=== PATIENT | male | born 1935 | race Caucasian/White ===

== ENCOUNTER 2019-12-30 19:03 | Inpatient (IN) | payer OTHER ==
--- OUTSIDE RECORDS SUMMARY | 2019-12-30 19:04 | XMS REPORT | Continuity of Care Document ---
:1935 Author Organization [facility] t Address [address] [place] [address] Dr. Owusu. [address] [place] [id number] Care Team Providers Name Role Phone Unavailable Unavailable Unavailable Problems This patient has no known problems. Allergies, Adverse Reactions, Alerts This patient has no known allergies or adverse reactions. Medications This patient has no known medications. Procedures This patient has no known procedures. Results This patient has no known results.
--- NOTE | 2019-12-30 19:51 | RAD REPORT ---
EXAM DESCRIPTION: Hugo Single View12/30/2019 7:43 pm CLINICAL HISTORY: cough COMPARISON: 2014 FINDINGS: The lungs appear clear of acute infiltrate. The heart is normal size IMPRESSION: No acute abnormalities displayed
[2019-12-30 20:43] LABS: Absolute Lymphocytes (CBC) 0.8 K/uL (0.7-4.9); Basophils % 0.8 % (0-1.3); Lymphocytes % 9.1 % (15.3-44.8); MPV 7.6 fL (7.6-11.3); RBC Red Blood Cell Count 4.82 M/uL (4.33-5.43)
[2019-12-30 20:52] LABS: Protime INR 1.03
[2019-12-30 20:59] LABS: ALT/SGPT 11 U/L (12-78); AST/SGOT 24 U/L (15-37); Albumin 3.4 g/dL (3.4-5.0); Alkaline Phosphatase 83 U/L (45-117); BUN Blood Urea Nitrogen 22 mg/dL (7-18); Bicarbonate 25 mmol/L (21-32); Bilirubin Direct 0.1 mg/dL (0-0.2); Bilirubin Total 0.5 mg/dL (0.2-1.0); C-Reactive Protein 9.04 mg/L (<3.00); Ferritin 38.5 ng/mL (26-388); Glucose Level 151 mg/dL (74-106); Lipase 215 U/L (73-393); Protein, Total 6.8 g/dL (6.4-8.2); Sodium Level 140 mmol/L (136-145); Troponin (Emerg Dept Use Only) < 0.02 ng/mL (0.0-0.045)
--- NOTE | 2019-12-30 21:12 | ER ---
Nurse's Notes [facility] Name: Darren Avendano Age: 84 yrs Sex: Male : 1935 Arrival Date: 12/30/2019 Time: 19:06 Bed 18 Private MD: Diagnosis: Coronavirus infection, unspecified;Hypoxemia;Unspecified combined systolic (congestive) and diastolic (congestive) heart failure;Fever, unspecified Presentation: 12/29 19:22 Chief complaint: EMS states: Cough, generalized weakness. Coronavirus screen: Patient ks7 reports a cough. Patient reports shortness of breath or difficulty breathing. Patient reports a measured and/or subjective temperature greater than 100.4F. Patient denies travel on a cruise ship or to a country the [facility] currently lists as an affected area. Patient denies contact with known and/or suspected case of COVID-19. Patient instructed to continue to wear a mask when interacting with others. Patient moved to private room, placed in contact and droplet isolation with eye protection until further assessment. Ebola Screen: Patient negative for fever greater than or equal to 101.5 degrees Fahrenheit, and additional compatible Ebola Virus Disease symptoms Patient denies exposure to infectious person. Patient denies travel to an Ebola-affected area in the 21 days before illness onset. Initial Sepsis Screen: Does the patient meet any 2 criteria? No. Patient's initial sepsis screen is negative. Does the patient have a suspected source of infection? No. Patient's initial sepsis screen is negative. Risk Assessment: Do you want to hurt yourself or someone else? Patient reports no desire to harm self or others. Onset of symptoms was December 30, 2019. 19:22 Method Of Arrival: EMS: [facility] 19:22 Acuity: FREDDIE 3 ks7 Triage Assessment: 19:28 General: Appears denies pain states "I'm fine". pt comes in with cough, fever, ks7 generalized weakness. Behavior is calm, cooperative. Pain: Denies pain. Historical: - Allergies: 19:28 No Known Allergies; ks7 - PMHx: 19:28 Hypertension; Depression; Diabetes - NIDDM; CHF; PVD; ks7 - Immunization history:: Adult Immunizations up to date. - Social history:: Smoking status: unknown. Screenin:31 Abuse screen: Denies threats or abuse. Denies injuries from another. Nutritional ks7 screening: No deficits noted. Tuberculosis screening: No symptoms or risk factors identified. Fall Risk No fall in past 12 months (0 pts). Secondary diagnosis (15 points) IV access (20 points). Ambulatory Aid- None/Bed Rest/Nurse Assist (0 pts). Gait- Weak (10 pts.). Mental Status- Overestimates/Forgets Limitations (15 pts.). Total Hook Fall Scale indicates High Risk Score (45 or more points). Fall prevention measures have been instituted. Side Rails Up X 2 Placed Close to Nursing Station Frequent Obs/Assessments Occuring. Assessment: 19:31 General: Appears cough, fever, pt calm cooperative no complaints. ks7 21:00 Reassessment: pt asleep, appears comfortable, VSS. ks7 22:00 Reassessment: No changes from previously documented assessment. ks7 22:55 Reassessment: sommer catheter placed. eunice care done. gown and linen change done. ks7 22:55 Reassessment: pt confused, keeps pulling off bp cuff, 02 cannula, restless. need to [facility] constantly remind and redirect pt to stop pulling lines. 23:11 Reassessment: Spoke with Mariam Cabezas from [facility], updated on patient lp1 admission. 23:30 Reassessment: spoke with Ember Brand, pt daughter. updated on plan of care to admit radha to hospital. [phone]. 23:50 Reassessment: pt appears comfortable, appears asleep, VSS. nj7 12/30 00:07 Reassessment: pt asleep, appears comfortable, vss. [facility] Vital Signs: 12/29 19:22 BP 160 / 83; Pulse 92; Resp 22; Temp 101.4(TE); Pulse Ox 90% on R/A; Weight 95.25 kg; ks7 Height 6 ft. (182.88 cm); Pain 0/10; 19:30 BP 146 / 76; Pulse 88; Resp 18; Temp 99.7(TE); Pulse Ox 97% on 2 lpm NC; Pain 0/10; ks7 20:00 BP 126 / 75; Pulse 96; Resp 22; Temp 101(TE); Pulse Ox 98% on 3 lpm NC; Pain 0/10; ks7 20:30 BP 133 / 72; Pulse 99; Resp 20; Pulse Ox 91% on R/A; Pain 0/10; ks7 21:00 BP 129 / 75; Pulse 95; Resp 18; Pulse Ox 93% on R/A; Pain 0/10; ks7 21:30 BP 116 / 65; Pulse 95; Resp 20; Pulse Ox 93% on R/A; Pain 0/10; ks7 22:00 BP 131 / 68; Pulse 94; Resp 18; Pulse Ox 96% on 3 lpm NC; Pain 0/10; ks7 22:15 BP 123 / 68; Pulse 96; Resp 18; Pulse Ox 89% on R/A; Pain 0/10; ks7 22:50 BP 133 / 79; Pulse 100; Resp 18; Pulse Ox 89% on R/A; Pain 0/10; ks7 22:56 BP 133 / 79; Pulse 95; Resp 20; Temp 100.3(TE); Pulse Ox 94% on 3 lpm NC; Pain 0/10; ks7 23:00 BP 97 / 67; Pulse 95; Resp 20; Pulse Ox 95% on 3 lpm NC; Pain 0/10; ks7 23:30 BP 138 / 79; Pulse 98; Resp 20; Pulse Ox 95% on 3 lpm NC; Pain 0/10; ks7 23:30 BP 129 / 64; Pulse 80; Resp 18; Temp 100.3(TE); Pulse Ox 96% on 3 lpm NC; Pain 0/10; 12/30 00:06 BP 135 / 66; Pulse 74; Resp 18; Temp 99.7(TE); Pulse Ox 97% on 3 lpm NC; Pain 0/10; nj12/29 19:22 Body Mass Index 28.48 (95.25 kg, 182.88 cm) ks12/29 22:15 pt confused pulled oxygen cannula off ks7 22:50 pt pulled nasal cannula off again and bp cuff 7 ED Course: 19:06 Patient arrived in ED. aa5 19:09 Aisha Cuenca, RN is Primary Nurse. ks7 19:19 Mike Casiano MD is Attending Physician. tw4 19:25 Triage completed. ks7 19:28 Arm band placed on right wrist. ks7 19:31 Patient has correct armband on for positive identification. Bed in low position. Call ks7 light in reach. Side rails up X2. 19:40 CXR XRAY Sent. ks7 19:43 CXR XRAY In Process Unspecified. EDMS 20:38 Initial lab(s) drawn, by me, sent to lab. Inserted saline lock: 20 gauge in right ca1 forearm, using aseptic technique. Blood collected. 20:38 First set of blood cultures drawn by me. ca1 20:48 Second set of blood cultures drawn by me. Inserted saline lock: 22 gauge in right ca1 antecubital area, using aseptic technique. Blood collected. 20:52 Flu and/or RSV swab sent to lab. Strep swab sent to lab. Covid swab. ca1 21:10 Jeremie Underwood is Hospitalizing Provider. tw4 23:00 Appears restless. ks7 23:00 No provider procedures requiring assistance completed. Flushed right antecubital ks7 forearm. 23:30 Resting quietly. Appears to be sleeping. ks7 12/30 00:08 Blood Culture Adult (2) Sent. ks7 00:30 Report received from JAYLIN Leonard. lp1 00:30 Patient admitted, IV remains in place. lp1 Administered Medications: Discontinued: AZITHromycin 500 mg IVPB once over 1 hrs; (mix in 250 mL NS) Discontinued: Rocephin - (cefTRIAXone) 1 grams IVPB once over 30 mins; (mix in 50 mL NS) 12/29 21:30 Drug: Rocephin - (cefTRIAXone) 1 grams Route: IVPB; Infused Over: 30 mins; Site: right ks7 antecubital; 21:40 Drug: AZITHromycin 500 mg Route: IVPB; Infused Over: 1 hrs; Site: right forearm; ks7 Outcome: 21:11 Decision to Hospitalize by Provider. tw4 12/30 01:00 Admitted to ER Hold. Please see [facility] for further documentation. lp1 Condition: stable Instructed on the need for admit. 13:20 Patient left the ED. jl7 Signatures: Dispatcher [employer] EDMS Kim Frances, RN RN aa5 Мария Crawford RN RN lp1 Madalyn Yan RN RN jl7 Mike Casiano MD MD tw4 Nela Valdez RN RN ca1 Aisha Cuenca RN RN ks7
--- NOTE | 2019-12-30 21:12 | EDPHYS ---
Physician Documentation [facility] Name: Darren Avendano Age: 84 yrs Sex: Male : 1935 Arrival Date: 12/30/2019 Time: 19:06 Bed 18 Private MD: ED Physician Mike Casiano HPI: 12/29 19:43 This 84 yrs old Male presents to ER via EMS with complaints of cough tw4 congestion generalized weakness. 19:43 The patient or guardian reports airway noise, cough. Onset: The symptoms/episode tw4 began/occurred today. Severity of symptoms: At their worst the symptoms were very mild, in the emergency department the symptoms are unchanged. Modifying factors: The symptoms are alleviated by nothing, the symptoms are aggravated by nothing. The patient has not experienced similar symptoms in the past. Historical: - Allergies: 19:28 No Known Allergies; ks7 - PMHx: 19:28 Hypertension; Depression; Diabetes - NIDDM; CHF; PVD; ks7 - Immunization history:: Adult Immunizations up to date. - Social history:: Smoking status: unknown. ROS: 19:43 Constitutional: Negative for fever, chills, and weight loss, Eyes: Negative for injury, tw4 pain, redness, and discharge, Cardiovascular: Negative for chest pain, palpitations, and edema, Abdomen/GI: Negative for abdominal pain, nausea, vomiting, diarrhea, and constipation, Back: Negative for injury and pain, MS/Extremity: Negative for injury and deformity, Skin: Negative for injury, rash, and discoloration, Neuro: Negative for headache, weakness, numbness, tingling, and seizure. 19:43 Respiratory: Positive for cough, "sounds productive", dyspnea on exertion. Exam: 19:43 Constitutional: This is a well developed, well nourished patient who is awake, alert, tw4 and in no acute distress. Head/Face: Normocephalic, atraumatic. Chest/axilla: Normal chest wall appearance and motion. Nontender with no deformity. No lesions are appreciated. Cardiovascular: Regular rate and rhythm with a normal S1 and S2. No gallops, murmurs, or rubs. Normal PMI, no JVD. No pulse deficits. Abdomen/GI: Soft, non-tender, with normal bowel sounds. No distension or tympany. No guarding or rebound. No evidence of tenderness throughout. Back: No spinal tenderness. No costovertebral tenderness. Full range of motion. MS/ Extremity: Pulses equal, no cyanosis. Neurovascular intact. Full, normal range of motion. Neuro: Awake and alert, GCS 15, oriented to person, place, time, and situation. Cranial nerves II-XII grossly intact. Motor strength 5/5 in all extremities. Sensory grossly intact. Cerebellar exam normal. Normal gait. Vital Signs: 19:22 BP 160 / 83; Pulse 92; Resp 22; Temp 101.4(TE); Pulse Ox 90% on R/A; Weight 95.25 kg; ks7 Height 6 ft. (182.88 cm); Pain 0/10; 19:30 BP 146 / 76; Pulse 88; Resp 18; Temp 99.7(TE); Pulse Ox 97% on 2 lpm NC; Pain 0/10; ks7 20:00 BP 126 / 75; Pulse 96; Resp 22; Temp 101(TE); Pulse Ox 98% on 3 lpm NC; Pain 0/10; ks7 20:30 BP 133 / 72; Pulse 99; Resp 20; Pulse Ox 91% on R/A; Pain 0/10; ks7 21:00 BP 129 / 75; Pulse 95; Resp 18; Pulse Ox 93% on R/A; Pain 0/10; ks7 21:30 BP 116 / 65; Pulse 95; Resp 20; Pulse Ox 93% on R/A; Pain 0/10; ks7 22:00 BP 131 / 68; Pulse 94; Resp 18; Pulse Ox 96% on 3 lpm NC; Pain 0/10; ks7 22:15 BP 123 / 68; Pulse 96; Resp 18; Pulse Ox 89% on R/A; Pain 0/10; ks7 22:50 BP 133 / 79; Pulse 100; Resp 18; Pulse Ox 89% on R/A; Pain 0/10; ks7 22:56 BP 133 / 79; Pulse 95; Resp 20; Temp 100.3(TE); Pulse Ox 94% on 3 lpm NC; Pain 0/10; ks7 23:00 BP 97 / 67; Pulse 95; Resp 20; Pulse Ox 95% on 3 lpm NC; Pain 0/10; ks7 23:30 BP 138 / 79; Pulse 98; Resp 20; Pulse Ox 95% on 3 lpm NC; Pain 0/10; ks7 23:30 BP 129 / 64; Pulse 80; Resp 18; Temp 100.3(TE); Pulse Ox 96% on 3 lpm NC; Pain 0/10; 12/30 00:06 BP 135 / 66; Pulse 74; Resp 18; Temp 99.7(TE); Pulse Ox 97% on 3 lpm NC; Pain 0/10; 12/29 19:22 Body Mass Index 28.48 (95.25 kg, 182.88 cm) 12/29 22:15 pt confused pulled oxygen cannula off ks7 22:50 pt pulled nasal cannula off again and bp cuff ks7 MDM: 19:21 Patient medically screened. 19:43 Differential Diagnosis: Obstructed Airway Bronchitis Influenza Upper Respiratory tw4 Infection. Data reviewed: vital signs, nurses notes. Data interpreted: Pulse oximetry: Interpretation: acceptable. Counseling: I had a detailed discussion with the patient and/or guardian regarding: the historical points, exam findings, and any diagnostic results supporting the discharge/admit diagnosis. 12/30 02:36 Physician consultation: Jeremie Underwood regarding admission, to the telemetry unit. tw4 patient's condition, and will see patient in ED. 12/29 19:22 Order name: Blood Culture Adult (2) 12/29 19:22 Order name: BMP; Complete Time: 21:03 12/29 21:03 Interpretation: Normal except: CL 108; BUN 22; GLUC 151; GFR 63. 12/29 19:22 Order name: C-Reactive Protein; Complete Time: 21:03 12/29 21:04 Interpretation: Abnormal: C-REACTIVE PROT 9.04. 12/29 19:22 Order name: CBC with Diff; Complete Time: 21:03 [facility] 12/29 21:04 Interpretation: Normal except: MCV 89.2; LYM% 9.1; LAUREN% 82.8. 12/29 19:22 Order name: COVID-19 12/29 19:22 Order name: D-Dimer; Complete Time: 21:03 [facility] 12/29 21:04 Interpretation: Abnormal: D-DIMER 963. 12/29 19:22 Order name: Ferritin; Complete Time: 21:03 12/29 21:05 Interpretation: Within normal limits: HAWK 38.5. 12/29 19:22 Order name: Flu; Complete Time: 12:32 12/29 19:22 Order name: Lactate; Complete Time: 21:03 12/29 21:09 Interpretation: Within normal limits: LAC 1.5. 12/29 19:22 Order name: LFT's; Complete Time: 21:03 12/29 21:05 Interpretation: Normal except: ALT 11; A/G 1.0. 12/29 19:22 Order name: Lipase; Complete Time: 21:03 12/29 21:09 Interpretation: Within normal limits: LIP 215. 12/29 19:22 Order name: Procalcitonin; Complete Time: 12:32 12/29 19:22 Order name: PT-INR; Complete Time: 21:03 12/29 21:09 Interpretation: Within normal limits: PT 12.2. 12/29 19:22 Order name: Ptt, Activated; Complete Time: 21:03 12/29 21:09 Interpretation: Within normal limits: PTT 31.8. 12/29 19:22 Order name: Strep; Complete Time: 12:32 12/29 19:22 Order name: Troponin (emerg Dept Use Only); Complete Time: 21:03 12/29 21:09 Interpretation: Within normal limits: TROPED < 0.02. 12/29 19:22 Order name: CXR XRAY; Complete Time: 20:10 12/29 19:23 Order name: Blood Culture [facility] 12/29 22:01 Order name: Throat Culture [place] 12/30 04:46 Order name: Urinalysis; Complete Time: 12:32 CO 12/30 05:06 Order name: Urine Microscopic Only; Complete Time: 12:32 CO 12/30 06:06 Order name: CBC with Automated Diff; Complete Time: 12:32 12/30 06:28 Order name: Basic Metabolic Panel; Complete Time: 12:32 CO 12/30 06:28 Order name: Phosphorus; Complete Time: 12:32 CO 12/30 06:28 Order name: NT PRO-BNP; Complete Time: 12:32 CO 12/30 06:28 Order name: Magnesium; Complete Time: 12:32 [facility]CO 12/30 06:28 Order name: Thyroid Stimulating Hormone; Complete Time: 12:32 [facility]CO 12/30 06:34 Order name: Manual Differential; Complete Time: 12:32 [facility]CO 12/30 07:46 Order name: Glucose, Ancillary Testing; Complete Time: 12:32 EDCO 12/30 12:37 Order name: Glucose, Ancillary Testing [facility] 12/29 19:22 Order name: EKG; Complete Time: 19:24 4 12/29 19:22 Order name: Cardiac monitoring; Complete Time: 19:40 tw4 12/29 19:22 Order name: Document PUI#; Complete Time: 05:19 12/29 19:22 Order name: Droplet/Contact Precautions; Complete Time: 19:39 4 12/29 19:22 Order name: EKG - Nurse/Tech; Complete Time: 21:13 12/29 19:22 Order name: [place]; Complete Time: 23:00 12/29 19:22 Order name: IV Start; Complete Time: 20:53 4 12/29 19:22 Order name: Labs collected and sent; Complete Time: 20:53 4 12/29 19:22 Order name: Notify Health Dept [phone]/ ; Complete Time: 20:53 12/29 19:22 Order name: O2 Per Protocol; Complete Time: 19:39 12/29 19:22 Order name: O2 Sat Monitoring; Complete Time: 19:39 12/29 19:22 Order name: Urine Dipstick-Ancillary (obtain specimen); Complete Time: 00:08 12/29 22:05 Order name: CONS Physician Consult EDCO EC:36 Rate is 98 beats/min. Rhythm is regular. Left axis deviation noted. MD interval is tw4 prolonged at 260 msec. QRS interval is normal. QT interval is normal. No Q waves. T waves are Inverted in leads III, aVF. No ST changes noted. Clinical impression: NSR w/ Non-specific ST/T Changes. Interpreted by me. Reviewed by me. Administered Medications: Discontinued: AZITHromycin 500 mg IVPB once over 1 hrs; (mix in 250 mL NS) Discontinued: Rocephin - (cefTRIAXone) 1 grams IVPB once over 30 mins; (mix in 50 mL NS) 12/29 21:30 Drug: Rocephin - (cefTRIAXone) 1 grams Route: IVPB; Infused Over: 30 mins; Site: right ks7 antecubital; 21:40 Drug: AZITHromycin 500 mg Route: IVPB; Infused Over: 1 hrs; Site: right forearm; ks7 Disposition: 12/30/19 21:11 Hospitalization ordered by Jeremie Underwood for Inpatient Admission. Preliminary diagnosis are Coronavirus infection, unspecified, Hypoxemia, Unspecified combined systolic (congestive) and diastolic (congestive) heart failure, Fever, unspecified. - Bed requested for Telemetry/MedSurg (Inpatient). - Status is Inpatient Admission. jl7 - Condition is Stable. - Problem is new. - Symptoms have improved. Signatures: Dispatcher [employer] EDMS Nahid Hudson, GUSTAVO-C CLIENT PARTNER-Cla1 Jessie Wilburn RN RN Madalyn Yan RN RN jl7 [facility] Mike Casiano MD MD [facility] Aisha Cuenca RN RN ks7 Corrections: (The following items were deleted from the chart) 22:23 21:11 Hospitalization Ordered by Jeremie Underwood for Inpatient Admission. Preliminary diagnosis is Coronavirus infection, unspecified; Hypoxemia; Unspecified combined systolic (congestive) and diastolic (congestive) heart failure; Fever, unspecified. Bed requested for Telemetry/MedSurg (Inpatient). Status is Inpatient Admission. Condition is Stable. Problem is new. Symptoms have improved. [facility] 12/30 12:15 12/29 22:23 12/30/2019 21:11 Hospitalization Ordered by Jeremie Underwood for Inpatient [place] Admission. Preliminary diagnosis is Coronavirus infection, unspecified; Hypoxemia; Unspecified combined systolic (congestive) and diastolic (congestive) heart failure; Fever, unspecified. Bed requested for [facility] ER HOLD. Status is Inpatient Admission. Condition is Stable. Problem is new. Symptoms have improved. 12/30 13:20 12:15 12/30/2019 21:11 Hospitalization Ordered by Jeremie Underwood for Inpatient jl7 Admission. Preliminary diagnosis is Coronavirus infection, unspecified; Hypoxemia; Unspecified combined systolic (congestive) and diastolic (congestive) heart failure; Fever, unspecified. Bed requested for Telemetry/MedSurg (Inpatient). Status is Inpatient Admission. Condition is Stable. Problem is new. Symptoms have improved. mt
[2019-12-30] MEDS ORDERED: CEFTRIAXONE/SWI 1gm 1 GM/10 ML SYR ONE (21:49)
[2019-12-30] MEDS ORDERED: AZITHROMYCIN 500 MG INJ IVPB ONE (21:49)
[2019-12-30] MEDS ORDERED: NA CHLORIDE 0.9% 250 ML ONE (21:50)
--- NOTE | 2019-12-30 22:20 | P.HP ---
Certification for Inpatient Patient admitted to: Inpatient With expected LOS: >2 Midnights Practitioner: I am a practitioner with admitting privileges, knowledge of patient current condition, hospital course, and medical plan of care. Services: Services provided to patient in accordance with Admission requirements found in Title 42 Section 412.3 of the Code of Federal Regulations Patient History Date of Service: 12/30/19 Reason for admission: Shortness of breath History of Present Illness: 84-year-old detention resident with a history of CHF, diabetes mellitus and hypertension was transferred from the detention to the emergency department due to fever and shortness of breath and coughing. Cough is nonproductive. The patient was found to be hypoxic on room air. His oxygen saturations 90% on room air in the ED. Patient was in moderate respiratory distress with regular respiration. Chest x-ray in the ED demonstrated bilateral infiltrate versus pulmonary edema. Patient placed on oxygen by nasal cannula and suctioned by respiratory therapist. COVID 19 test is obtained. The patient is admitted for further management. - Past Medical/Surgical History -: Hypertension -: Congestive heart -: Diabetes mellitus type 2 -: Peripheral vascular disease - Family History Family History: Reviewed- Non-Contributory - Social History Smoking Status: Never smoker Alcohol use: No CD- Drugs: No Place of Residence: Skilled Nursing Review of Systems Other: Except as documented, all other systems reviewed and negative. Physical Examination - Physical Exam General: Mild distress, Confused HEENT: Mucous membr. moist/pink, Sclerae nonicteric Neck: Supple, JVD not distended Respiratory: Normal air movement, Crackles/rales (Bilateral) Cardiovascular: Regular rate/rhythm, Normal S1 S2, Edema (2+ bilateral lower extremity pitting edema) Capillary refill: <2 Seconds Gastrointestinal: Normal bowel sounds, Soft and benign, No tenderness Musculoskeletal: Other (Bilateral lower extremity lymphedema) Integumentary: Other (Venous stasis dermatitis bilateral lower extremities) Neurological: Other (Non-focal.) - Studies Laboratory Data (last 24 hrs) 12/30/19 20:29: PT 12.2, INR 1.03, APTT 31.8 12/30/19 20:29: WBC 8.3, Hgb 14.4, Hct 43.0, Plt Count 152 12/30/19 20:29: Sodium 140, Potassium 4.0, BUN 22 H, Creatinine 1.11, Glucose 151 H, Total Bilirubin 0.5, AST 24, ALT 11 L, Alkaline Phosphatase 83, Lipase 215 Microbiology Data (last 24 hrs): 12/30/19 20:39 Throat Group A Streptococcus Rapid Screen - Final 12/30/19 20:39 Nasopharnyx Influenza Type A Antigen Screen - Final 12/30/19 20:39 Nasopharnyx Influenza Type B Antigen Screen - Final Assessment and Plan - Problems (Diagnosis) (1) Pneumonia Current Visit: Yes Status: Acute (2) Acute on chronic diastolic heart failure Current Visit: Yes Status: Acute (3) Hypertension Current Visit: Yes Status: Acute (4) Diabetes mellitus type 2 in obese Current Visit: Yes Status: Acute (5) Acute respiratory failure with hypoxia Current Visit: Yes Status: Acute - Plan Admit to the medical floor. Supplemental oxygen Trial of IV Lasix. Start IV Levaquin for pneumonia IV dexamethasone Consult to pulmonary Follow COVID 19 result Insulin sliding scale for glucose management. - Advance Directives Does patient have a Living Will: No Does patient have a Durable POA for Healthcare: No
[2019-12-31] MEDS ORDERED: ACETAMINOPHEN 500 MG TAB PO PRN (01:52)
[2019-12-31] MEDS: Levofloxacin 750mg IV 750 MG/150 ML BAG IV SCH (03:30)
[2019-12-31] MEDS: dexAMETHasone 10 MG/ML VIAL IV SCH ×2 (03:30→09:00)
[2019-12-31] MEDS ORDERED: dexAMETHasone 10 MG/ML VIAL ONE ×2 (03:43→07:27)
[2019-12-31 04:42] LABS: Urine Appearance TURBID; Urine Blood 3+ (NEG); Urine Color RED; Urine Glucose NEGATIVE (NEG); Urine Protein 3+ (NEG); Urine Urobilinogen 0.2 mg/dL (0.2-1.0)
[2019-12-31 04:46] LABS: Urine Bilirubin NEGATIVE (NEG); Urine Microscopic Reflex ORDER UMIC
[2019-12-31 05:04] LABS: Urine Culture Reflex Order REFLEXED
[2019-12-31 05:06] LABS: Urine Bacteria <20 /HPF (NONE SEEN); Urine Mucus 2+ /HPF (NONE SEEN); Urine RBC >50 /HPF (NONE SEEN)
--- NOTE | 2019-12-31 05:57 | EKG ---
Test Date: 2019-12-30 Test Time: 20:53:37 Mangle Operator Garments: MAKENZIE Trujillo MEASUREMENT RESULTS: Intervals: Rate: 96 OR: 258 QRSD: 82 QT: 348 QTc: 439 [place]: P: 11 OR: 258 QRS: -49 T: 16 INTERPRETIVE STATEMENTS: Sinus rhythm with 1st degree AV block with premature atrial complexes Left axis deviation Voltage criteria for left ventricular hypertrophy Cannot rule out Septal infarct, age undetermined Possible Lateral infarct, age undetermined Inferior infarct, age undetermined Abnormal ECG Compared to ECG 08/09/2018 13:42:02 Atrial premature complex(es) now present Myocardial infarct finding still present Electronically Signed On 12-31-19 05:56:26 CDT by John Walker
[2019-12-31 06:05] LABS: Absolute Lymphocytes (CBC) 0.5 K/uL (0.7-4.9); Basophils % 0.6 % (0-1.3); Hematocrit 41.5 % (39.6-49.0); Lymphocytes % 6.6 % (15.3-44.8); MPV 7.6 fL (7.6-11.3); RBC Red Blood Cell Count 4.71 M/uL (4.33-5.43)
[2019-12-31 06:28] LABS: Magnesium 1.6 mg/dL (1.8-2.4); Phosphorus 2.7 mg/dL (2.5-4.9); Potassium 3.9 mmol/L (3.5-5.1)
[2019-12-31 06:34] LABS: Blood Morphology Comment NOT SEEN (NOT SEEN); Platelet Estimate ADEQ
[2019-12-31] MEDS ORDERED: MAGNESIUM SULFATE 1 gm IVPB 1 GM/100 ML BAG IV ONE ×2 (07:00→07:28)
[2019-12-31] MEDS ORDERED: FUROSEMIDE 40 MG/4 ML VIAL ONE (07:27)
[2019-12-31] MEDS ORDERED: ENOXAPARIN 40 MG/0.4 ML SQ ONE (07:28)
[2019-12-31] MEDS: FUROSEMIDE 40 MG/4 ML VIAL IV SCH ×2 (09:00→17:26)
[2019-12-31] MEDS: ENOXAPARIN 40 MG/0.4 ML SQ SCH (09:00)
[2019-12-31] MEDS ORDERED: INSULIN -REGULAR HUMAN 50 UNIT/0.5 ML ML ONE ×2 (09:01→12:41)
[2019-12-31] MEDS: INSULIN -REGULAR HUMAN 50 UNIT/0.5 ML ML SQ SCH ×4 (10:30→21:15)
--- NOTE | 2019-12-31 10:36 | P.PN ---
Subjective Date of Service: 12/31/19 Chief Complaint: Shortness of breath Subjective: No new changes Physical Examination - Vital Signs Temperature: 98.9 F Blood Pressure: 136/61 Pulse: 87 Respirations: 22 Pulse Ox (%): 96 - Studies Laboratory Data (last 24 hrs) 12/30/19 20:29: PT 12.2, INR 1.03, APTT 31.8 12/30/19 20:29: WBC 8.3, Hgb 14.4, Hct 43.0, Plt Count 152 12/30/19 20:29: Sodium 140, Potassium 4.0, BUN 22 H, Creatinine 1.11, Glucose 151 H, Total Bilirubin 0.5, AST 24, ALT 11 L, Alkaline Phosphatase 83, Lipase 215 Microbiology Data (last 24 hrs): 12/30/19 20:39 Throat Group A Streptococcus Rapid Screen - Final 12/30/19 20:39 Nasopharnyx Influenza Type A Antigen Screen - Final 12/30/19 20:39 Nasopharnyx Influenza Type B Antigen Screen - Final Assessment & Plan Physician Review Additional Text: Pneumonia Acute on chronic diastolic heart failure Hypertension Diabetes mellitus type 2 in obese Acute respiratory failure with hypoxia - Plan Admit to the medical floor. Supplemental oxygen Trial of IV Lasix. Start IV Levaquin for pneumonia IV dexamethasone Consult to pulmonary Follow COVID 19 result Insulin sliding scale for glucose management. 12/31/2019 Monitor closely under tele Awaiting covered 19 test Will get a CT chest PE protocol given the D-dimer elevation Continue antibiotics Start on IV steroids Patient has retention of urine bladder scan showed urine 683 ml Patient already has a Hathaway catheter Will try to irrigate and see how he does Time Spent Managing Pts Care (In Minutes): 42
[2019-12-31] MEDS: dexAMETHasone 4 MG/ML VIAL IV SCH (17:26)
[2019-12-31] MEDS ORDERED: MELATONIN 3 MG TABLET PO PRN (18:16)
[2019-12-31] MEDS ORDERED: HOME MED 1 EA UNK (Ropinirole Hcl [Ropinirole Hcl] 2 MG) PO SCH (21:00)
[2019-12-31] MEDS ORDERED: HOME MED 1 EA UNK (Metformin Hcl [Metformin Hcl] 1,000 MG) PO SCH (21:00)
--- NOTE | 2019-12-31 21:39 | RAD REPORT ---
EXAM DESCRIPTION: CT - Chest For Pe Angio - 12/31/2019 9:33 pm CLINICAL HISTORY: Chest pain. chest pain COMPARISON: No comparisons TECHNIQUE: CT angiogram of the pulmonary arteries was performed with MIP. All CT scans are performed using dose optimization technique as appropriate and may include automated exposure control or mA/KV adjustment according to patient size. FINDINGS: No evidence of pulmonary thromboembolism. No acute aortic finding demonstrated. The heart is mildly enlarged. Bilateral interstitial lung opacities are seen likely representing mild interstitial pulmonary edema. No significant pericardial or pleural fluid. No concerning bony finding. Cholecystectomy. Pneumobilia. IMPRESSION: No evidence of pulmonary thromboembolism. Vlbn-ov-urhyshoe interstitial pulmonary edema.
[2019-12-31] MEDS: GABAPENTIN 300 MG CAP PO SCH (23:28)
[2019-12-31] MEDS: CARBIDOPA/LEVODOPA 25/250 TAB PO SCH (23:28)
[2019-12-31] MEDS: BACLOFEN 10 MG TAB PO SCH (23:29)
[2019-12-31] MEDS: CITALOPRAM 10 MG TABLET PO SCH (23:29)
[2020-01-01] MEDS: dexAMETHasone 4 MG/ML VIAL IV SCH ×3 (01:24→16:39)
[2020-01-01] MEDS: Levofloxacin 750mg IV 750 MG/150 ML BAG IV SCH (01:25)
[2020-01-01] MEDS: CARBIDOPA/LEVODOPA 25/250 TAB PO SCH ×4 (04:47→23:36)
[2020-01-01 06:08] LABS: Potassium 3.9 mmol/L (3.5-5.1)
[2020-01-01 06:39] VITALS: BMI 24.7
[2020-01-01] MEDS ORDERED: POTASSIUM 25 MEQ EFFERV TAB PO ONE (08:00)
[2020-01-01] MEDS: HOME MED 1 EA UNK (Mirabegron [Myrbetriq] 25 MG) PO SCH (09:00)
[2020-01-01] MEDS: HOME MED 1 EA UNK (Galantamine Hbr [Galantamine Er] 24 MG) PO SCH (09:00)
[2020-01-01] MEDS: ENOXAPARIN 40 MG/0.4 ML SQ SCH (09:51)
[2020-01-01] MEDS: FEXOFENADINE 180 MG TAB PO SCH (09:51)
[2020-01-01] MEDS: AMLODIPINE 2.5 MG TAB PO SCH (09:51)
[2020-01-01] MEDS: ASPIRIN 325 MG TAB PO SCH (09:52)
[2020-01-01] MEDS: ROPINIROLE HCL 1 MG TAB PO SCH ×3 (09:52→21:06)
[2020-01-01] MEDS: METFORMIN HCL 500 MG TAB PO SCH ×2 (09:52→16:39)
[2020-01-01] MEDS: lisinopriL 10 MG TAB PO SCH (09:52)
[2020-01-01] MEDS: GABAPENTIN 300 MG CAP PO SCH ×2 (09:53→21:06)
[2020-01-01] MEDS: INSULIN -REGULAR HUMAN 50 UNIT/0.5 ML ML SQ SCH ×4 (09:53→21:00)
--- NOTE | 2020-01-01 13:10 | P.PN ---
Subjective Date of Service: 01/01/20 Chief Complaint: Shortness of breath Subjective: No new changes Review of Systems 10-point ROS is otherwise unremarkable Physical Examination - Vital Signs Temperature: 97.3 F Blood Pressure: 183/91 Pulse: 81 Respirations: 16 Pulse Ox (%): 97 - Physical Exam General: Alert, In no apparent distress HEENT: Atraumatic, Normocephalic Neck: Supple Respiratory: Clear to auscultation bilaterally Cardiovascular: No edema, Regular rate/rhythm, Normal S1 S2 Capillary refill: <2 Seconds Gastrointestinal: Soft and benign, W/out hepatosplenomegaly Musculoskeletal: No clubbing, No swelling Integumentary: No rashes Neurological: Other (Alert ,Awake ) - Studies Microbiology Data (last 24 hrs): 12/30/19 20:40 Nasopharnyx Coronavirus COVID-19 PCR - Final Assessment & Plan Physician Review Additional Text: Pneumonia Acute on chronic diastolic heart failure Hypertension Diabetes mellitus type 2 in obese Acute respiratory failure with hypoxia - Plan Admit to the medical floor. Supplemental oxygen Trial of IV Lasix. Start IV Levaquin for pneumonia IV dexamethasone Consult to pulmonary Follow COVID 19 result Insulin sliding scale for glucose management. 01/01/2020 Monitor closely under telemetry CT chest PE protocol given the D-dimer elevation CT negative for PE shows interstitial edema Continue antibiotics on IV steroids Will give diuretics Monitor closely Time Spent Managing Pts Care (In Minutes): 42
[2020-01-01] MEDS ORDERED: HYDRALAZINE HCL 20 MG/ML VIAL IV PRN (13:13)
[2020-01-01] MEDS: HYDRALAZINE HCL 25 MG TABLET PO SCH ×2 (14:30→21:06)
[2020-01-01] MEDS: FUROSEMIDE 20 MG/ 2ML VIAL IV SCH (17:46)
[2020-01-01] MEDS: CITALOPRAM 10 MG TABLET PO SCH (21:06)
[2020-01-01] MEDS: BACLOFEN 10 MG TAB PO SCH (21:06)
[2020-01-02] MEDS: dexAMETHasone 4 MG/ML VIAL IV SCH ×2 (00:54→09:05)
[2020-01-02] MEDS: Levofloxacin 750mg IV 750 MG/150 ML BAG IV SCH (00:54)
[2020-01-02] MEDS: CARBIDOPA/LEVODOPA 25/250 TAB PO SCH ×2 (05:18→11:21)
[2020-01-02] MEDS: HOME MED 1 EA UNK (Galantamine Hbr [Galantamine Er] 24 MG) PO SCH (09:00)
[2020-01-02] MEDS: HOME MED 1 EA UNK (Mirabegron [Myrbetriq] 25 MG) PO SCH (09:00)
[2020-01-02] MEDS: GABAPENTIN 300 MG CAP PO SCH (09:03)
[2020-01-02] MEDS: INSULIN -REGULAR HUMAN 50 UNIT/0.5 ML ML SQ SCH ×3 (09:03→16:30)
[2020-01-02] MEDS: lisinopriL 10 MG TAB PO SCH (09:04)
[2020-01-02] MEDS: ROPINIROLE HCL 1 MG TAB PO SCH ×2 (09:04→13:19)
[2020-01-02] MEDS: ENOXAPARIN 40 MG/0.4 ML SQ SCH (09:04)
[2020-01-02] MEDS: ASPIRIN 325 MG TAB PO SCH (09:04)
[2020-01-02] MEDS: AMLODIPINE 2.5 MG TAB PO SCH (09:04)
[2020-01-02] MEDS: HYDRALAZINE HCL 25 MG TABLET PO SCH ×2 (09:04→13:19)
[2020-01-02] MEDS: FEXOFENADINE 180 MG TAB PO SCH (09:05)
[2020-01-02] MEDS: METFORMIN HCL 500 MG TAB PO SCH (09:05)
[2020-01-02] MEDS: FUROSEMIDE 20 MG/ 2ML VIAL IV SCH (09:06)
[2020-01-02 10:13] VITALS: O2SAT 96
[2020-01-02] MEDS ORDERED: POTASSIUM CL SA 10 MEQ TAB PO ONE (11:29)
--- NOTE | 2020-01-02 11:34 | P.DS ---
Admission Date: 12/30/19 Discharge Date: 01/03/20 Disposition: TRANSFER TO HALF-WAY Discharge Condition: GOOD Reason for Admission: Shortness of breath Brief History of Present Illness: 84-year-old half-way resident with a history of CHF, diabetes mellitus and hypertension was transferred from the half-way to the emergency department due to fever and shortness of breath and coughing. Cough is nonproductive. The patient was found to be hypoxic on room air. His oxygen saturations 90% on room air in the ED. Patient was in moderate respiratory distress with regular respiration. Chest x-ray in the ED demonstrated bilateral infiltrate versus pulmonary edema. Patient placed on oxygen by nasal cannula and suctioned by respiratory therapist. COVID 19 test is obtained. The patient is admitted for further management. Hospital Course: Pneumonia Acute on chronic diastolic heart failure Hypertension Diabetes mellitus type 2 in obese Acute respiratory failure with hypoxia Patient was admitted and was monitored closely under telemetry He was started on Supplemental oxygenalong with antibiotic and steroids Consulted pulmonary Monitor closely under telemetry CT chest PE protocol given the D-dimer elevation CT negative for PE shows interstitial edema Continue antibiotics IV steroids and IV diuretics Patient responded well to the treatment and He wants to go home He is being discharged home today in a stable condition with advice to follow up with cardiology and pulmonology in 1-2 weeks Vital Signs/Physical Exam: Temp Pulse Resp BP Pulse Ox 97.3 F 69 20 162/85 H 95 01/02/20 08:00 01/02/20 09:06 01/02/20 08:00 01/02/20 09:06 01/02/20 08:00 General: Alert, In no apparent distress HEENT: Atraumatic, Normocephalic Neck: Supple Respiratory: Clear to auscultation bilaterally Cardiovascular: Regular rate/rhythm, Normal S1 S2 Capillary refill: <2 Seconds Gastrointestinal: Soft and benign Musculoskeletal: No clubbing Integumentary: No rashes Neurological: Normal speech Laboratory Data at Discharge: WBC 7.8 K/uL (4.3-10.9) 12/31/19 05:47 Hgb 14.1 g/dL (13.6-17.9) 12/31/19 05:47 Hct 41.5 % (39.6-49.0) 12/31/19 05:47 Plt Count 151 K/uL (152-406) L 12/31/19 05:47 PT 12.2 SECONDS (9.5-12.5) 12/30/19 20:29 INR 1.03 12/30/19 20:29 APTT 31.8 SECONDS (24.3-36.9) 12/30/19 20:29 Sodium 143 mmol/L (136-145) 01/01/20 05:03 Potassium 3.9 mmol/L (3.5-5.1) 01/01/20 05:03 BUN 30 mg/dL (7-18) H 01/01/20 05:03 Creatinine 1.28 mg/dL (0.55-1.3) 01/01/20 05:03 Glucose 163 mg/dL (74-106) H 01/01/20 05:03 Phosphorus 2.7 mg/dL (2.5-4.9) 12/31/19 05:47 Magnesium 2.0 mg/dL (1.8-2.4) 01/01/20 05:03 Total Bilirubin 0.5 mg/dL (0.2-1.0) 12/30/19 20:29 AST 24 U/L (15-37) 12/30/19 20:29 ALT 11 U/L (12-78) L 12/30/19 20:29 Alkaline Phosphatase 83 U/L (45-117) 12/30/19 20:29 Lipase 215 U/L (73-393) 12/30/19 20:29 Home Medications: Amlodipine [Norvasc*] 2.5 mg PO DAILY 12/31/19 Aspirin 325 mg PO DAILY 12/31/19 Baclofen 10 mg PO BEDTIME 12/31/19 Carbidopa/Levodopa [Carbidopa-Levo 25-250 mg Odt] 1 each PO Q6H 12/31/19 Citalopram [Celexa*] 10 mg PO BEDTIME 12/31/19 Fexofenadine HCl [Lydia Allergy] 180 mg PO DAILY 12/31/19 Gabapentin 300 mg PO BID 12/31/19 Galantamine HBr [Galantamine ER] 24 mg PO DAILY 12/31/19 Lisinopril [Zestril] 30 mg PO DAILY 12/31/19 Melatonin 3 mg PO BEDTIME PRN PRN 12/31/19 Metformin HCl 1,000 mg PO BID 12/31/19 Mirabegron [Myrbetriq] 25 mg PO DAILY 12/31/19 Ropinirole HCl 2 mg PO TID 12/31/19 Cefdinir [Omnicef] 300 mg PO BID #14 capsule 01/02/20 Furosemide [Lasix] 20 mg PO BID #60 tablet 01/02/20 Hydralazine [Apresoline*] 25 mg PO TID #90 tab 01/02/20 predniSONE [Deltasone] 20 mg PO BID #10 tab 01/02/20 New Medications: Hydralazine [Apresoline*] 25 mg PO TID #90 tab Furosemide [Lasix] 20 mg PO BID #60 tablet Cefdinir [Omnicef] 300 mg PO BID #14 capsule predniSONE [Deltasone] 20 mg PO BID #10 tab Followup: Bandar Barone MD [ACTIVE - CAN ADMIT] - Time spent managing pt's care (in minutes): 42
--- NOTE | 2020-01-02 13:06 | P.CNS ---
Date of Consult: 01/02/20 Reason for Consult: possible castro virus infection Chief Complaint: Shortness of breath History of Present Illness: patient is an 84-year-old very pleasant man from the care home multiple medical problems admitted with fever shortness of breath he was found to be hypoxic as admitted from the emergency room was castro virus test is negative he currently denies any complaints no fever chills shortness of breath. No prior history of chronic cardiopulmonary problems patient has history of Parkinson's disease is never smoked Allergies No Known Allergies Allergy (Verified 12/31/19 18:03) Home Medications: Amlodipine [Norvasc*] 2.5 mg PO DAILY 12/31/19 Aspirin 325 mg PO DAILY 12/31/19 Baclofen 10 mg PO BEDTIME 12/31/19 Carbidopa/Levodopa [Carbidopa-Levo 25-250 mg Odt] 1 each PO Q6H 12/31/19 Citalopram [Celexa*] 10 mg PO BEDTIME 12/31/19 Fexofenadine HCl [Lydia Allergy] 180 mg PO DAILY 12/31/19 Gabapentin 300 mg PO BID 12/31/19 Galantamine HBr [Galantamine ER] 24 mg PO DAILY 12/31/19 Lisinopril [Zestril] 30 mg PO DAILY 12/31/19 Melatonin 3 mg PO BEDTIME PRN PRN 12/31/19 Metformin HCl 1,000 mg PO BID 12/31/19 Mirabegron [Myrbetriq] 25 mg PO DAILY 12/31/19 Ropinirole HCl 2 mg PO TID 12/31/19 Cefdinir [Omnicef] 300 mg PO BID #14 capsule 01/02/20 Furosemide [Lasix] 20 mg PO BID #60 tablet 01/02/20 Hydralazine [Apresoline*] 25 mg PO TID #90 tab 01/02/20 predniSONE [Deltasone] 20 mg PO BID #10 tab 01/02/20 - Past Medical/Surgical History Diabetic: Yes -: Hypertension -: Congestive heart -: Diabetes mellitus type 2 -: Peripheral vascular disease -: parkinson -: depression - Social History Smoking Status: Unknown if ever smoked Alcohol use: No CD- Drugs: No Caffeine use: No Place of Residence: [facility] Review of Systems 10-point ROS is otherwise unremarkable Physical Examination Temp Pulse Resp BP Pulse Ox 97.3 F 69 20 162/85 H 95 01/02/20 08:00 01/02/20 09:06 01/02/20 08:00 01/02/20 09:06 01/02/20 08:00 General: Alert, Oriented x3 Respiratory: Clear to auscultation bilaterally Cardiovascular: No edema, Regular rate/rhythm Gastrointestinal: Normal bowel sounds, Soft and benign - Problems (1) Pneumonia Current Visit: Yes Status: Acute Plan: patient is 84 years of age admitted with possible castro virus infection he still has bilateral ground-glass changes although is castro virus test is negative stable to be discharged home on steroids vital signs are stable oxygenation satisfactory patient's CRP on admission was normal while renal impairment CT chest x-ray reviewed white count is normal no evidence of thromboembolism patient's D-dimer was elevated Qualifiers: Laterality: unspecified laterality Lung location: unspecified part of lung
[2020-01-02 15:46] VITALS: BP 143/72; TEMP 97.9
== END 2020-01-02 16:35 | DRG 193 ==
LOC: ER 19:03 → ERHOLD 22:15 → 2ND 12-31 12:51
PROVIDERS: ADMIT Internal Medicine; ATTEND Family Medicine
PROC: 8E0ZXY6 Isolation (ICD-10-PCS; principal; 2019-12-30)
DX: J18.9 Pneumonia, unspecified organism (principal); I50.33 Acute on chronic diastolic (congestive) heart failure; J96.01 Acute respiratory failure with hypoxia; E11.51 Type 2 diabetes mellitus with diabetic peripheral angiopathy without gangrene; I11.0 Hypertensive heart disease with heart failure; G20 Parkinson's disease; R50.9 Fever, unspecified; E66.9 Obesity, unspecified; Z68.21 Body mass index [BMI] 21.0-21.9, adult; Z79.82 Long term (current) use of aspirin; Z79.84 Long term (current) use of oral hypoglycemic drugs; Z79.52 Long term (current) use of systemic steroids; Z79.899 Other long term (current) drug therapy; Z20.828 Contact with and (suspected) exposure to other viral communicable diseases
CPT/HCPCS: 36415; 71045; 71275; 80048; 80076; 81003; 81015; 82728; 82947; 83605; 83690; 83735; 83880; 84100; 84145; 84443; 84484; 85025; 85379; 85610; 85730; 86140; 87040; 87070; 87081; 87086; 87088; 87804; 93005; 96374; 96375; 99285; J0456; J0696; J1100; J1650; J1940; J3475; J7050; Q9967; U0002

== ENCOUNTER 2020-04-18 09:10 | Emergency (ER) | payer OTHER ==
--- OUTSIDE RECORDS SUMMARY | 2020-04-18 09:30 | XMS REPORT | Continuity of Care Document ---
:1935 Author Organization [facility] t Address [address] [place] [address] Dr. Seymour [address] [place] [id number] Care Team Providers Name Role Phone Unavailable Unavailable Unavailable Problems This patient has no known problems. Allergies, Adverse Reactions, Alerts This patient has no known allergies or adverse reactions. Medications This patient has no known medications. Procedures This patient has no known procedures. Results This patient has no known results.
[2020-04-18 09:33] LABS: Absolute Lymphocytes (CBC) 1.3 K/uL (0.7-4.9); Basophils % 0.4 % (0-1.3); Hematocrit 36.7 % (39.6-49.0); Lymphocytes % 6.9 % (15.3-44.8); MPV 8.1 fL (7.6-11.3); RBC Red Blood Cell Count 4.11 M/uL (4.33-5.43)
[2020-04-18 09:33] LABS: Arterial Blood Carboxyhemoglob 1.9 % (0-1.5); Blood Gas Oxyhemoglobin 95.9 % (94-97); Blood O2 Saturation 98.7 % (92-98.5)
[2020-04-18 09:38] LABS: Protime INR 1.21
[2020-04-18] MEDS ORDERED: NA CHLORIDE 0.9% 2,000 ML ONE (09:54)
[2020-04-18] MEDS ORDERED: ACETAMINOPHEN 650MG/RECT SUPP PR ONE (09:54)
[2020-04-18 09:56] LABS: Blood Morphology Comment NOT SEEN (NOT SEEN); Platelet Estimate ADEQ
[2020-04-18] MEDS ORDERED: CEFEPIME/SWI 2gm 2 GM/20 ML SYR IV SCH (10:00)
[2020-04-18 10:06] LABS: ALT/SGPT 11 U/L (12-78); AST/SGOT 11 U/L (15-37); Albumin 2.8 g/dL (3.4-5.0); Alkaline Phosphatase 67 U/L (45-117); BUN Blood Urea Nitrogen 46 mg/dL (7-18); Bicarbonate 30 mmol/L (21-32); Bilirubin Direct 0.2 mg/dL (0-0.2); Bilirubin Total 0.6 mg/dL (0.2-1.0); CKMB Creatine Kinase MB < 1.0 ng/mL (0.3-3.6); Creatine Phosphokinase 46 U/L (39-308); Glucose Level 202 mg/dL (74-106); Lipase 53 U/L (73-393); Potassium 3.6 mmol/L (3.5-5.1); Protein, Total 6.7 g/dL (6.4-8.2); Sodium Level 143 mmol/L (136-145); Troponin (Emerg Dept Use Only) < 0.02 ng/mL (0.0-0.045)
--- NOTE | 2020-04-18 10:25 | RAD REPORT ---
EXAM DESCRIPTION: RAD - Chest Single View - 04/18/2020 9:53 am CLINICAL HISTORY: FEVER COMPARISON: December 30, 2019 TECHNIQUE: AP portable chest image was obtained 04/18/2020 9:53 am . FINDINGS: Lung volumes are quite low which accentuates chronic baseline interstitial pattern. Minima l patchy alveolar opacities are present. No dense consolidation seen. Heart and vasculature are marlo l. No measurable pleural effusion and no pneumothorax. No acute bony abnormality seen. No acute aorti c findings suspected. IMPRESSION: Limited shallow inspiration exam showing prominent interstitial opacification in some mi nimal alveolar opacities. Chest is not substantially different. Early failure or volume overload are possible. Viral infiltrate s can also have this presentation.
[2020-04-18] MEDS ORDERED: VANCOMYCIN/NS 1 gm 1 GM/250 ML BAG IV SCH (10:30)
--- NOTE | 2020-04-18 10:39 | RAD REPORT ---
EXAM DESCRIPTION: CT - Head Brain Wo Cont - 04/18/2020 10:26 am CLINICAL HISTORY: MENTAL STATUS CHANGE COMPARISON: Brain Wo Cont dated 07/31/2019 TECHNIQUE: Axial 5 mm thick images of the head were obtained without IV contrast. All CT scans are performed using dose optimization technique as appropriate and may include automated exposure control or mA/KV adjustment according to patient size. FINDINGS: No intracranial hemorrhage, mass, edema or shift of mid-line structures. No acute cortical based infarction. No cortical edema or sulcal effacement. Moderate cerebral volume loss changes are noted. Ventricles are in proportion to the volume loss. Small old infarction changes present at the l eft insular cortex and external capsule. 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 Chronic ischemic changes extend into the brainstem. No abnormal extra-axial fluid collecti ons. Mastoid air cells and visualized portions of the paranasal sinuses are clear. No acute bony findings. IMPRESSION: No hemorrhage, mass or acute intracranial finding identifiable. Atrophy, chronic ischemic changes and old CVA changes are present as detailed. These are not substant ially different from July 2019.
[2020-04-18] MEDS ORDERED: NA CHLORIDE 0.9% 100 ML ONE (10:43)
[2020-04-18] MEDS ORDERED: CEFEPIME 2 GM VIAL ONE (10:43)
[2020-04-18] MEDS ORDERED: NA CHLORIDE 0.9% 250 ML ONE (10:43)
[2020-04-18] MEDS ORDERED: VANCOMYCIN 1 GM/VIAL ONE (10:43)
[2020-04-18] MEDS ORDERED: ASPIRIN 81 MG CHEWABLE TABLET ONE (10:44)
[2020-04-18 11:24] LABS: Urine Blood 1+ (NEG); Urine Glucose NEGATIVE (NEG); Urine Protein 1+ (NEG); Urine Specific Gravity 1.015 (1.005-1.030)
[2020-04-18 12:03] LABS: Urine Amorphous Sediment 2+ /HPF (NONE SEEN); Urine Bacteria >50 /HPF (NONE SEEN); Urine Culture Reflex Order NOT NEEDED
--- NOTE | 2020-04-18 14:05 | ER ---
Nurse's Notes [facility] Name: Darren Avendano Age: 85 yrs Sex: Male : 1935 Arrival Date: 04/18/2020 Time: 09:11 Bed 2 Private MD: Diagnosis: Altered mental status, unspecified;Severe sepsis;Acute kidney failure;Urinary tract infection, site not specified Presentation: 04/18 09:12 Chief complaint: EMS states: FEVER AND AMS AT [facility]. Coronavirus screen: fever. bp Ebola Screen: No symptoms or risks identified at this time. Initial Sepsis Screen: Does the patient meet any 2 criteria? RR > 20 per min. Temp <36.0*C (96.8*F)) or > 38.3*C (100.9*F). Altered Mental Status. HR > 90 bpm. Yes Does the patient have a suspected source of infection? Yes: Productive cough/pneumonia If YES to both, name of provider notified: Oj DIAZ Risk Assessment: Do you want to hurt yourself or someone else? Patient reports no desire to harm self or others. Onset of symptoms is unknown. Care prior to arrival: IV initiated. 20 GA, in the left antecubital area, Glucose check: 210. 09:12 Method Of Arrival: EMS: [facility] bp 09:12 Acuity: FREDDIE 2 bp Triage Assessment: 09:12 General: Appears distressed, uncomfortable, ill, Behavior is drowsy, quiet. Pain: bp Unable to use pain scale. EENT: No deficits noted. Neuro: Level of Consciousness is listless, obtunded, Oriented to none. Cardiovascular: Rhythm is sinus tachycardia. Respiratory: Breath sounds are coarse bilaterally. Breath sounds with wheezes bilaterally. GI: Abdomen is non-distended, Bowel sounds present X 4 quads. : No signs and/or symptoms were reported regarding the genitourinary system. Derm: No deficits noted. Musculoskeletal: No deficits noted. Historical: - Allergies: 15:28 No Known Allergies; bp - PMHx: 15:28 CHF; Depression; Diabetes - NIDDM; Hypertension; PVD; bp - Immunization history:: Adult Immunizations unknown. - Social history:: Smoking status: unknown. Screenin:30 Abuse screen: Denies threats or abuse. Denies injuries from another. Nutritional bp screening: No deficits noted. Tuberculosis screening: No symptoms or risk factors identified. Fall Risk None identified. Assessment: 10:00 Reassessment: INITIAL TAN PLACEMENT UNSUCCESSFUL. PROVIDER NOTIFIED, COUDE CATH bp PLACED. 11:00 Reassessment: Patient appears in no apparent distress at this time. No changes from bp previously documented assessment. PT RETURNED FROM CT. ALL CURRENT ORDERS COMPLETED. 12:30 Reassessment: No changes from previously documented assessment. IVF INFUSING, INITIAL bp ABX COMPLETED. ADMIT PENDING Patient states symptoms have not improved. 14:00 Reassessment: No changes from previously documented assessment. ADMIT INITIATED. bp Patient states symptoms have not improved. 15:15 Reassessment: Patient appears in no apparent distress at this time. No changes from bp previously documented assessment. TRANSFER INITIATED. Cardiovascular: Rhythm is sinus tachycardia. 16:15 Reassessment: Patient appears in no apparent distress at this time. No changes from bp previously documented assessment. TRANSFER APPROVED, COVID NEGATIVE PER LAB. 16:29 Reassessment: REPORT TO [facility] [place] [id number] BED 4. TRANSPORT PENDING. bp 17:28 Reassessment: [facility] AT B/S FOR TRANSPORT. bp Vital Signs: 09:12 BP 116 / 72; Pulse 120; Resp 24; Temp 103.4; Pulse Ox 95% on 3 lpm NC; Weight 79.38 kg; bp 09:43 BP 105 / 61; Pulse 110; Resp 24; Temp 101.0(A); Pulse Ox 98% on 2 lpm NC; mh5 10:54 BP 112 / 65; Pulse 101; Resp 21; Temp 100.0(TE); Pulse Ox 100% on 2 lpm NC; mh5 11:15 BP 97 / 56; Pulse 97; Resp 21; Pulse Ox 100% ; bp 12:30 BP 138 / 76; Pulse 84; Resp 19; Pulse Ox 96% ; bp 13:31 BP 154 / 84; Pulse 128; Resp 24; Temp 102.7(TE); Pulse Ox 99% on 2 lpm NC; mh5 14:12 BP 150 / 89; Pulse 127; Resp 26; Pulse Ox 96% ; bp 15:15 BP 132 / 67; Pulse 126; Resp 28; Temp 102.7; Pulse Ox 97% on 2 lpm NC; bp 16:20 BP 113 / 97; Pulse 125; Resp 19; Pulse Ox 98% on 2 lpm NC; bp 17:14 BP 142 / 89; Pulse 122; Resp 33; Temp 101.4(TE); Pulse Ox 98% on 2 lpm NC; mh5 Mitchel Coma Score: 13:35 Eye Response: to pain(2). Verbal Response: none(1). Motor Response: withdraws from jr8 pain(4). Total: 7. ED Course: 09:11 Patient arrived in ED. bp 09:12 Oj Parker PA is PHCP. jr8 09:12 Kwasi Handley MD is Attending Physician. jr8 09:12 Arm band placed on. bp 09:14 Triage completed. bp 09:25 Elijah Ta, JAYLIN is Primary Nurse. bp 09:41 Initial lab(s) drawn, by me, sent to lab. First set of blood cultures drawn EKG done, mh5 by ED staff, reviewed by Oj DIAZ. Inserted saline lock: 22 gauge in right forearm, using aseptic technique. Blood collected. Maintain EMS IV. Dressing intact. Site clean \T\ dry. 09:43 Patient has correct armband on for positive identification. Placed in gown. Bed in low mh5 position. Call light in reach. Side rails up X2. Pillow given. cardiac monitor technician on. Pulse ox on. NIBP on. 09:53 Chest Single View XRAY In Process Unspecified. EDMS 10:15 Tan cath inserted, using sterile technique, 14 Fr., by me, balloon inflated, to bp gravity drainage, returned cloudy urine. Patient tolerated well. 10:27 CT Head Brain wo Cont In Process Unspecified. EDMS 13:36 initiated a transfer with Tierra Caballero from the [facility]/ [facility] ICU is at saturation. 14:00 initiated a transfer with Kay from the [facility]. eb 14:04 Rex Garcia DO is Hospitalizing Provider. jr8 14:10 per Kay from [facility] ICU they are at saturation. unable to accept the eb patient in transfer. 14:[address] Robbins the premium service representative cotton washer for [facility] with Oj DIAZ for eb patient transfer consultation. 16:03 administrative approval given by Tierra Caballero/ patient has been accepted to [facility] 7 south 1 bed 4/ Dr. Robbins has accepted the patient in transfer/ report to be called to [phone]. 17:29 No provider procedures requiring assistance completed. Patient transferred, IV remains bp in place. Administered Medications: 09:30 Drug: Acetaminophen Suppository 650 mg Route: NH; bp 12:40 Follow up: Response: No adverse reaction bp 09:30 Drug: NS 0.9% (30 ml/kg) 30 ml/kg Route: IV; Rate: bolus; Site: right antecubital; bp 16:16 Follow up: IV Status: Completed infusion; IV Intake: 2300ml bp 09:45 Drug: Cefepime 2 grams Route: IVPB; Rate: 200 ml/hr; Infused Over: 30 mins; Site: right bp antecubital; 10:15 Follow up: IV Status: Completed infusion; IV Intake: 100ml bp 10:30 Drug: vancoMYCIN 1 grams Route: IVPB; Infused Over: 2 hrs; Site: right antecubital; bp 11:30 Follow up: IV Status: Completed infusion; IV Intake: 250ml bp Intake: 10:15 IV: 100ml; Total: 100ml. bp 11:30 IV: 250ml; Total: 350ml. bp 16:16 IV: 2300ml; Total: 2650ml. bp Outcome: 14:05 Decision to Hospitalize by Provider. jr8 14:30 ER care complete, transfer ordered by . jr8 17:29 Transferred by [facility] to [facility], Transfer form bp completed. 17:29 Condition: stable 17:29 Instructed on the need for transfer. 18:06 Patient left the ED. iw Signatures: Dispatcher [employer] EDMS Elvia Estrada RN RN Oj Parker PA PA 8 Nessa Foy [facility] Elijah Ta RN RN Tierra Rodriguez Corrections: (The following items were deleted from the chart) 09:27 09:12 BP 116 / 72; Pulse 120bpm; Resp 24bpm; Pulse Ox 95% 3 lpm Nasal Cannula; Temp bp 103.4F; bp
--- NOTE | 2020-04-18 14:05 | EDPHYS ---
Physician Documentation [facility] Name: Darren Avendano Age: 85 yrs Sex: Male : 1935 Arrival Date: 04/18/2020 Time: 09:11 Bed 2 Private MD: ED Physician Kwasi Handley HPI: 04/18 10:42 This 85 yrs old Male presents to ER via EMS with complaints of Fever. jr8 10:42 The patient reports fever, with an emergency department temperature of 103.4 degrees jr8 Fahrenheit. Onset: The symptoms/episode began/occurred acutely, today. Associated signs and symptoms: Pertinent positives: altered mental status,\E\. Severity of symptoms: At their worst the symptoms were moderate in the emergency department the symptoms are unchanged. It is unknown whether or not the patient has had similar symptoms in the past. It is unknown whether or not the patient has recently seen a physician. 10:43 Patient brought in by EMS from [place] after being called out for patient with fever and jr8 decreased mental status. Patient has 103.4 T upon arrival to ED. Minimally responsive to painful stimulus. Maintaining airway. Historical: - Allergies: 15:28 No Known Allergies; bp - PMHx: 15:28 CHF; Depression; Diabetes - NIDDM; Hypertension; PVD; bp - Immunization history:: Adult Immunizations unknown. - Social history:: Smoking status: unknown. ROS: 13:35 Unable to obtain ROS due to altered mental status. jr8 Exam: 13:35 Eyes: Periorbital structures: appear normal, Pupils: equal, right pupil is jr8 approximately 3 mm(s), left pupil is approximately 3 mm(s), Conjunctiva: normal, Sclera: no appreciated abnormality, Anterior chamber: normal, Lids and lashes: appear normal. 13:35 ENT: Mouth: Lips: dry, cracked, Oral mucosa: pink and intact, Gums: pink, Posterior pharynx: Airway: patent. 13:35 Cardiovascular: Rate: tachycardic, Rhythm: regular, Pulses: Pulses are 2+ in right radial artery and left radial artery. Edema: is not appreciated. 13:35 Respiratory: the patient does not display signs of respiratory distress, Respirations: normal, Breath sounds: rhonchi, that are moderate, are heard diffusely. 13:35 Abdomen/GI: Bowel sounds: active, all quadrants, Palpation: soft, in all quadrants, no appreciated organomegaly, Liver: no appreciated palpable abnormalities. 13:35 Skin: Appearance: Color: pink, Temperature: normal temperature, Moisture: normal moisture. 13:35 Neuro: Orientation: Not oriented to person, place, time, situation, Mentation: unable to follow commands, seizure activity, is not displayed by the patient, Abnormal movements: there are no abnormal movements. 13:39 ECG was reviewed by the Attending Physician. jr8 Vital Signs: 09:12 BP 116 / 72; Pulse 120; Resp 24; Temp 103.4; Pulse Ox 95% on 3 lpm NC; Weight 79.38 kg; bp 09:43 BP 105 / 61; Pulse 110; Resp 24; Temp 101.0(A); Pulse Ox 98% on 2 lpm NC; mh5 10:54 BP 112 / 65; Pulse 101; Resp 21; Temp 100.0(TE); Pulse Ox 100% on 2 lpm NC; mh5 11:15 BP 97 / 56; Pulse 97; Resp 21; Pulse Ox 100% ; bp 12:30 BP 138 / 76; Pulse 84; Resp 19; Pulse Ox 96% ; bp 13:31 BP 154 / 84; Pulse 128; Resp 24; Temp 102.7(TE); Pulse Ox 99% on 2 lpm NC; mh5 14:12 BP 150 / 89; Pulse 127; Resp 26; Pulse Ox 96% ; bp 15:15 BP 132 / 67; Pulse 126; Resp 28; Temp 102.7; Pulse Ox 97% on 2 lpm NC; bp 16:20 BP 113 / 97; Pulse 125; Resp 19; Pulse Ox 98% on 2 lpm NC; bp 17:14 BP 142 / 89; Pulse 122; Resp 33; Temp 101.4(TE); Pulse Ox 98% on 2 lpm NC; mh5 Mitchel Coma Score: 13:35 Eye Response: to pain(2). Verbal Response: none(1). Motor Response: withdraws from jr8 pain(4). Total: 7. MDM: 09:13 Patient medically screened. 8 14:03 Data reviewed: vital signs, nurses notes, lab test result(s), EKG, radiologic studies, jr8 CT scan, plain films. Data interpreted: Pulse oximetry: on room air is 99 %. Interpretation: normal. Counseling: I had a detailed discussion with the patient and/or guardian regarding: the historical points, exam findings, and any diagnostic results supporting the discharge/admit diagnosis, lab results, radiology results, the need for further work-up and treatment in the hospital. ED course: Both [facility] and [facility] are at ICU saturation. Will admit to hospitalist here and will be ER hold for ICU . 14:29 ED course: [facility] Got back with us and found a bed. Dr. Robbins accepted to ICU. 04/18 09:18 Order name: ABG; Complete Time: 10:10 04/18 09:18 Order name: Urine Culture 04/18 09:18 Order name: C-Reactive Protein; Complete Time: 10:10 04/18 09:18 Order name: Basic Metabolic Panel; Complete Time: 10:10 04/18 09:18 Order name: Blood Culture Adult (2) 04/18 09:18 Order name: CBC with Diff; Complete Time: 10:10 04/18 09:18 Order name: Ckmb; Complete Time: 10:10 04/18 09:18 Order name: CPK; Complete Time: 10:10 04/18 09:18 Order name: Lactate; Complete Time: 10:10 04/18 09:18 Order name: LFT's; Complete Time: 10:10 04/18 09:18 Order name: Lipase; Complete Time: 10:10 04/18 09:18 Order name: Procalcitonin; Complete Time: 10:10 04/18 09:18 Order name: Protime (+inr); Complete Time: 10:10 04/18 09:18 Order name: Ptt, Activated; Complete Time: 10:10 04/18 09:18 Order name: Troponin (emerg Dept Use Only); Complete Time: 10:10 04/18 09:18 Order name: Urine Microscopic Only; Complete Time: 12:06 04/18 09:18 Order name: Chest Single View XRAY; Complete Time: 10:33 04/18 09:18 Order name: Accucheck; Complete Time: 09:40 04/18 09:18 Order name: Cardiac monitoring; Complete Time: 09:40 8 04/18 09:30 Order name: Glucose, Ancillary Testing; Complete Time: 10:10 EDND 04/18 09:56 Order name: Manual Differential; Complete Time: 10:10 EDND 04/18 10:13 Order name: CT Head Brain wo Cont; Complete Time: 10:[address] [facility] 04/18 11:04 Order name: Urine Dipstick--Ancillary (enter results); Complete Time: 11:34 04/18 14:49 Order name: EKG Electrocardiogram EDND 04/18 16:20 Order name: SARS-COV-2 RT PCR; Complete Time: 16:26 EDND 04/18 09:18 Order name: EKG - Nurse/Tech; Complete Time: 09:[address] [facility] 04/18 09:18 Order name: IV Saline Lock - Large Bore; Complete Time: 09:[address] [facility] 04/18 09:18 Order name: Labs collected and sent; Complete Time: 09:[address] [facility] 04/18 09:18 Order name: O2 Per Protocol; Complete Time: 10:17 8 04/18 09:18 Order name: O2 Sat Monitoring; Complete Time: 10:[address] [facility] 04/18 09:18 Order name: Urine Dipstick-Ancillary (obtain specimen); Complete Time: 10:59 8 04/18 13:12 Order name: EKG - Nurse/Tech; Complete Time: 14:08 jr8 EC:39 Rate is 119 beats/min. Rhythm is regular, Sinus tachycardia. QRS [place] is Normal. ND jr8 interval is prolonged at 224 msec. QRS interval is normal at 68 msec. QT interval is normal at 278 msec. No Q waves. T waves are Normal. No ST changes noted. Clinical impression: 1st degree heart block and Sinus tachycardia. Interpreted by me. Reviewed by me. Administered Medications: 09:30 Drug: Acetaminophen Suppository 650 mg Route: ND; bp 12:40 Follow up: Response: No adverse reaction bp 09:30 Drug: NS 0.9% (30 ml/kg) 30 ml/kg Route: IV; Rate: bolus; Site: right antecubital; bp 16:16 Follow up: IV Status: Completed infusion; IV Intake: 2300ml bp 09:45 Drug: Cefepime 2 grams Route: IVPB; Rate: 200 ml/hr; Infused Over: 30 mins; Site: right bp antecubital; 10:15 Follow up: IV Status: Completed infusion; IV Intake: 100ml bp 10:30 Drug: vancoMYCIN 1 grams Route: IVPB; Infused Over: 2 hrs; Site: right antecubital; bp 11:30 Follow up: IV Status: Completed infusion; IV Intake: 250ml bp Disposition: 04/19 08:20 Co-signature as Attending Physician, Kwasi Handley MD I agree with the assessment and keesha plan of care. Disposition: 04/18/20 14:30 Transfer ordered to [facility]. Diagnosis are Altered mental status, unspecified, Severe sepsis, Acute kidney failure, Urinary tract infection, site not specified. - Reason for transfer: Higher level of care. - Accepting physician is Dr. Robbins. - Condition is Fair. - Problem is new. - Symptoms are unchanged. Signatures: Dispatcher [employer] [facility] Kwasi Handley MD MD cha Williams, Irene, JAYLIN RN Oj Parkre PA PA jr8 Elijah Ta RN RN bp Corrections: (The following items were deleted from the chart) 04/18 14:20 14:05 Hospitalization Ordered by Rex Garcia DO for Inpatient Admission. Preliminary jr8 diagnosis is Severe sepsis; Acute kidney failure; Urinary tract infection, site not specified. Bed requested for Intensive Care Unit. Status is Inpatient Admission. Condition is Serious. Problem is new. Symptoms are unchanged. jr8 15:07 13:39 CORONAVIRUS+MR.LAB.BRZ ordered. [facility] 18:06 14:30 04/18/2020 14:30 Transfer ordered to [facility]. iw Diagnosis is Altered mental status, unspecified; Severe sepsis; Acute kidney failure; Urinary tract infection, site not specified. Reason for transfer: Higher level of care. Accepting physician is Dr. Robbins. Condition is Fair. Problem is new. Symptoms are unchanged. jr8
[2020-04-18 20:51] VITALS: O2SAT 98
[2020-04-18 20:53] VITALS: BP 142/89; TEMP 101.4
--- NOTE | 2020-04-20 07:47 | EKG ---
Test Date: 2020-04-18 Test Time: 09:22:24 Senior [employer] Developer: JEFFERY MEASUREMENT RESULTS: Intervals: Rate: 119 MT: 224 QRSD: 68 QT: 278 QTc: 391 [place]: P: 10 MT: 224 QRS: -43 T: 43 INTERPRETIVE STATEMENTS: Sinus tachycardia with 1st degree AV block Left axis deviation Voltage criteria for left ventricular hypertrophy Inferior infarct, age undetermined Anterolateral infarct, age undetermined Abnormal ECG Compared to ECG 12/30/2019 20:54:08 Sinus rhythm no longer present Myocardial infarct finding still present Electronically Signed On 04-20-20 07:41:33 [employer] REPRESENTATIVE by John Walker
== END 2020-04-18 18:06 | disposition short-term general hospital (02) ==
LOC: ER 09:10
DX: A41.9 Sepsis, unspecified organism (principal); R65.20 Severe sepsis without septic shock; N39.0 Urinary tract infection, site not specified; N17.9 Acute kidney failure, unspecified; R41.82 Altered mental status, unspecified; Z20.828 Contact with and (suspected) exposure to other viral communicable diseases
CPT/HCPCS: 96365; 96367; 93005 ×2; 87040 ×2; 85025; 87086; 80048; 36415; 82550; 85610; 82947; 80076; 83605; 85730; 84484; 82553; 83690; 84145; 86140; 70450; 71045; 82805; 51702; 99285; 96366; U0003; J3370; J0692 ×2; J7050; J7030; 81003; 81015; 87088

== ENCOUNTER 2020-05-19 12:29 | Emergency (ER) | payer OTHER ==
--- OUTSIDE RECORDS SUMMARY | 2020-05-19 12:34 | XMS REPORT | Clinical Summary ---
:1935 Author Organization [facility] Address [address] [place] [address] Care Team Providers Name Role Phone Unavailable Primary Care Provider Unavailable Allergies No Known Allergies Medications Medication Sig Dispensed Refills Start Date End Date Status amLODIPine (NORVASC) Take 1 tablet by 0 12/31/2019 Active 2.5 MG tablet mouth daily. aspirin 325 MG tablet Take 1 tablet by 0 12/31/2019 Active mouth daily. baclofen (LIORESAL) Take 1 tablet by 0 12/31/2019 Active 10 MG tablet mouth nightly. CARBIDOPA-LEVODOPA Take 1 tablet by 0 12/31/2019 Active ORAL mouth every 6 (six) hours. citalopram (CeleXA) Take 1 tablet by 0 12/31/2019 Active 10 MG tablet mouth nightly. fexofenadine Take 1 tablet by 0 12/31/2019 Active (ELANA) 180 MG mouth daily. tablet furosemide (LASIX) 20 Take 1 tablet by 0 01/02/2020 Active MG tablet mouth 2 (two) times daily. gabapentin Take 2 capsules 0 12/31/2019 Ac tive (NEURONTIN) 100 MG by mouth 2 (two) capsule times daily. galantamine (RAZADYNE Take 1 capsule 0 12/31/2019 Active ER) 24 MG 24 hr by mouth daily. capsule hydrALAZINE Take 1 tablet by 0 01/02/2020 Active (APRESOLINE) 25 MG mouth 3 (three) tablet times daily. lisinopriL Take 1 tablet by 0 12/31/2019 A ctive (PRINIVIL,ZESTRIL) 30 mouth daily. MG tablet melatonin 3 mg Cap Take 3 capsules 0 12/31/2019 Active by mouth every night as needed. metFORMIN Take 1 tablet by 0 12/31/2019 Ac tive (Glucophage) 1000 MG mouth 2 (two) tablet times daily. mirabegron Take 1 tablet by 0 12/31/2019 A ctive (MYRBETRIQ) 25 mg mouth daily. Tb24 ER tablet rOPINIRole (Requip) 1 Take 2 tablets 0 12/31/2019 Active MG tablet by mouth 3 (three) times daily. levoFLOXacin Take 1 tablet 5 tablet 0 04/22/2020 04/27/2020 E xpired (LEVAQUIN) 500 MG (500 mg total) tablet by mouth daily for 5 days. 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, unspecified whether septic shock present (HCC) (Primary Dx); 04/22/2020 Medicine MD Hayes Sepsis with encephalopathy without septi c shock, due to unspecified organism (HCC); Des, Severe sepsis ( HCC); Rudolph Acute metabolic encephalopathy; MD Tico ERASTO (acute kidney injury) (HCC); Geovany Montgomery, Gluteal abs cess MD Sun Johnson, Kit Conroy MD 04/18/2020 Telephone Critical Care Nathalie Robbins MD 12/31/2019 Lab Requisition Lab after 05/19/2019 Social History Tobacco Use Types Packs/Day Years Used Date Never Assessed Sex Assigned at Date Recorded Not on file COVID-19 Exposure Response Date Recorded In the last month, have you been in contact with No / Unsure 04/21/2020 11:10 PM MANUFACTURING FINANCE MANAGER someone who was confirmed or suspected to have Coronavirus / COVID-19? Last Filed Vital Signs Vital Sign Reading Time Taken Comments Blood Pressure 170/78 04/22/2020 8:34 AM MANUFACTURING FINANCE MANAGER Pulse 56 04/22/2020 8:34 AM MANUFACTURING FINANCE MANAGER Temperature 36.2 C (97.2 F) 04/22/2020 8:34 AM MANUFACTURING FINANCE MANAGER Respiratory Rate 18 04/22/2020 8:34 AM MANUFACTURING FINANCE MANAGER Oxygen Saturation 97% 04/22/2020 8:34 AM MANUFACTURING FINANCE MANAGER Inhaled Oxygen Concentration - - Weight 74.2 kg (163 lb 9.3 oz) 04/20/2020 3:00 AM MANUFACTURING FINANCE MANAGER Height 177.8 cm (5' 10") 04/18/2020 9:00 PM MANUFACTURING FINANCE MANAGER Body Mass Index 23.47 04/18/2020 9:00 PM MANUFACTURING FINANCE MANAGER Plan of Treatment Health Maintenance Due Date Last Done Comments PNEUMOCOCCAL 65+ YRS (1 of 1 - [id number]) 1999 MEDICARE ANNUAL WELLNESS (YEAR 2 or FIRST YEAR if no 02/06/2000 IPPE) INFLUENZA VACCINE (#1) 2020 Procedures Procedure Name Priority Date/Time Associated Comments Diagnosis POCT-GLUCOSE METER Routine 04/22/2020 8:24 Resul ts for this AM MANUFACTURING FINANCE MANAGER procedure are i n the results section. POCT-GLUCOSE METER Routine 04/21/2020 9:15 Resul ts for this PM MANUFACTURING FINANCE MANAGER procedure are i n the results section. POCT-GLUCOSE METER Routine 04/21/2020 5:28 Resul ts for this PM MANUFACTURING FINANCE MANAGER procedure are i n the results section. POCT-GLUCOSE METER Routine 04/21/2020 12:47 Resul ts for this PM MANUFACTURING FINANCE MANAGER procedure are i n the results section. POCT-GLUCOSE METER Routine 04/21/2020 8:02 Resul ts for this AM MANUFACTURING FINANCE MANAGER procedure are i n the results section. CBC W/PLT COUNT & AUTO STAT 04/21/2020 5:28 R esults for this DIFFERENTIAL AM MANUFACTURING FINANCE MANAGER procedure are i n the results section. PHOSPHORUS STAT 04/21/2020 5:28 Results for this AM MANUFACTURING FINANCE MANAGER procedure are i n the results section. MAGNESIUM STAT 04/21/2020 5:28 Results for this AM MANUFACTURING FINANCE MANAGER procedure are i n the results section. BASIC METABOLIC PANEL Routine 04/21/2020 5:28 Re sults for this (7) AM MANUFACTURING FINANCE MANAGER procedure are i n the results section. CBC W/PLT COUNT & AUTO STAT 04/21/2020 5:28 R esults for this DIFFERENTIAL AM MANUFACTURING FINANCE MANAGER procedure are i n the results section. VANCOMYCIN LEVEL, Timed 04/20/2020 11:23 Result s for this TROUGH PM MANUFACTURING FINANCE MANAGER procedure are i n the results section. POCT-GLUCOSE METER Routine 04/20/2020 9:32 Resul ts for this PM MANUFACTURING FINANCE MANAGER procedure are i n the results section. POCT-GLUCOSE METER Routine 04/20/2020 4:23 Resul ts for this PM MANUFACTURING FINANCE MANAGER procedure are i n the results section. CBC W/PLT COUNT & AUTO STAT 04/20/2020 4:20 R esults for this DIFFERENTIAL AM MANUFACTURING FINANCE MANAGER procedure are i n the results section. PHOSPHORUS STAT 04/20/2020 4:20 Results for this AM MANUFACTURING FINANCE MANAGER procedure are i n the results section. MAGNESIUM STAT 04/20/2020 4:20 Results for this AM MANUFACTURING FINANCE MANAGER procedure are i n the results section. BASIC METABOLIC PANEL Routine 04/20/2020 4:20 Re sults for this (7) AM MANUFACTURING FINANCE MANAGER procedure are i n the results section. CBC W/PLT COUNT & AUTO STAT 04/20/2020 4:20 R esults for this DIFFERENTIAL AM MANUFACTURING FINANCE MANAGER procedure are i n the results section. POCT-GLUCOSE METER Routine 04/19/2020 9:53 Resul ts for this PM MANUFACTURING FINANCE MANAGER procedure are i n the results section. POCT-GLUCOSE METER Routine 04/19/2020 4:48 Resul ts for this PM MANUFACTURING FINANCE MANAGER procedure are i n the results section. SARS-COV2/RT-PCR ([facility] STAT 04/19/2020 12:33 R esults for this & REF LABS) PM MANUFACTURING FINANCE MANAGER procedure are i n the results section. POCT-GLUCOSE METER Routine 04/19/2020 12:29 Resul ts for this PM MANUFACTURING FINANCE MANAGER procedure are i n the results section. POCT-GLUCOSE METER Routine 04/19/2020 7:48 Resul ts for this AM MANUFACTURING FINANCE MANAGER procedure are i n the results section. CBC W/PLT COUNT & AUTO STAT 04/19/2020 3:50 R esults for this DIFFERENTIAL AM MANUFACTURING FINANCE MANAGER procedure are i n the results section. PHOSPHORUS STAT 04/19/2020 3:50 Results for this AM MANUFACTURING FINANCE MANAGER procedure are i n the results section. MAGNESIUM STAT 04/19/2020 3:50 Results for this AM MANUFACTURING FINANCE MANAGER procedure are i n the results section. BASIC METABOLIC PANEL Routine 04/19/2020 3:50 Re sults for this (7) AM MANUFACTURING FINANCE MANAGER procedure are i n the results section. CBC W/PLT COUNT & AUTO STAT 04/19/2020 3:50 R esults for this DIFFERENTIAL AM MANUFACTURING FINANCE MANAGER procedure are i n the results section. URINALYSIS W/ REFLEX Routine 04/19/2020 12:20 Res ults for this URINE CULTURE AM MANUFACTURING FINANCE MANAGER procedure are in the results section. POCT-GLUCOSE METER Routine 04/18/2020 10:35 Resul ts for this PM MANUFACTURING FINANCE MANAGER procedure are i n the results section. CBC W/PLT COUNT & AUTO STAT 04/18/2020 8:18 R esults for this DIFFERENTIAL PM MANUFACTURING FINANCE MANAGER procedure are i n the results section. CBC W/PLT COUNT & AUTO STAT 04/18/2020 8:18 R esults for this DIFFERENTIAL PM MANUFACTURING FINANCE MANAGER procedure are i n the results section. VANCOMYCIN LEVEL, Routine 04/18/2020 8:16 Result s for this RANDOM PM MANUFACTURING FINANCE MANAGER procedure are i n the results section. HEMOGLOBIN A1C AP Routine 04/18/2020 8:16 Results f or this PM MANUFACTURING FINANCE MANAGER procedure are i n the results section. TSH/FREE T4 IF Routine 04/18/2020 8:16 Results f or this INDICATED PM MANUFACTURING FINANCE MANAGER procedure are i n the results section. PROCALCITONIN Routine 04/18/2020 8:16 Results fo r this PM MANUFACTURING FINANCE MANAGER procedure are i n the results section. LACTIC ACID, VENOUS Routine 04/18/2020 8:16 Resu lts for this PM MANUFACTURING FINANCE MANAGER procedure are i n the results section. COMPREHENSIVE STAT 04/18/2020 8:16 Results fo r this METABOLIC PANEL PM MANUFACTURING FINANCE MANAGER procedure ar e in the results section. BLOOD CULTURE Routine 04/18/2020 8:16 Results fo r this PM MANUFACTURING FINANCE MANAGER procedure are i n the results section. BLOOD CULTURE Routine 04/18/2020 8:16 Results fo r this PM MANUFACTURING FINANCE MANAGER procedure are i n the results section. XR CHEST 1 VIEW STAT 04/18/2020 7:40 Results for this PORTABLE/BEDSIDE PM MANUFACTURING FINANCE MANAGER procedure a re in the results section. REPORT OF PROCEDURE - 04/18/2020 Result s for this ENDOSCOPY SCAN procedure are in the results section. SARS-COV2/RT-PCR ([facility] Routine 12/30/2019 8:40 R esults for this & REF LABS) PM CDT procedure are i n the results section. after 05/19/2019 Results POC-Glucose meter (04/22/2020 8:24 AM MANUFACTURING FINANCE MANAGER)Only the most recent of12 results within the time period is included. POC-Glucose Meter 192 (H) 70 - 110 [facility] Comment: mg/dL HEALTH BC : TESTED AT [address], [address] [facility] CENTER : Livestock Slaughterer/Special Education Inclusion Teacher ID = [id number] for DWIGHT [place] Specimen Blood Performing Organization Address City/State/Zipcode Phone Number [address] [phone] CENTER CBC with platelet count + automated diff (04/21/2020 5:28 AM MANUFACTURING FINANCE MANAGER)Only the most recent of4 resultswithin the time period is included. Pathologist Sig nature WBC 13.0 (H) 3.5 - 10.5 [facility] RBC 4.02 (L) 4.63 - 6.08 [facility] M/L [facility] Hemoglobin 12.0 (L) 13.7 - 17.5 [facility] GM/DL [facility] Hematocrit 38.0 (L) 40.1 - 51.0 % [facility] MCV 94.5 (H) 79.0 - 92.2 fL [facility] MCH 29.9 25.7 - 32.2 pg [facility] MCHC 31.6 (L) 32.3 - 36.5 [facility] RDW 12.1 11.6 - 14.4 % [facility] Platelets 269 150 - 450 K/CU [facility] MPV 10.4 9.4 - 12.4 fL [facility] nRBC 0 0 - 0 /100 WBC [facility] % Neutros 81 % [facility] % Lymphs 12 % [facility] % Monos 5 % [facility] % Eos 1 % [facility] % Baso 1 % [facility] # Neutros 10.43 (H) 1.78 - 5.38 [facility] # Lymphs 1.52 1.32 - 3.57 [facility] # Monos 0.62 0.30 - 0.82 [facility] # Eos 0.18 0.04 - 0.54 [facility] # Baso 0.08 0.01 - 0.08 [facility] K/L [facility] Immature 1 0 - 1 % [facility] [place] Specimen Blood Performing Organization Address City/[facility]/Zipcode Phone Number [address] [address] CENTER Phosphorus (04/21/2020 5:28 AM MANUFACTURING FINANCE MANAGER)Only the most recent of3 resultswithin the time period is included. Pathologist Sig nature Phosphorus 2.2 (L) 2.3 - 4.7 mg/dL [facility] Specimen Blood Narrative Performed At Livestock Slaughte[facility] Performing Organization Address City/[facility]/Zipcode Phone Number [address] [address] CENTER Magnesium (04/21/2020 5:28 AM MANUFACTURING FINANCE MANAGER)Only the most recent of3 resultswithin the time period is included. Pathologist Sig nature Magnesium 1.7 1.6 - 2.6 mg/dL [facility] Specimen Blood Narrative Performed At Livestock Slaughterer [facility] - [facility] Performing Organization Address City/[facility]/Zipcode Phone Number [address] [address] CENTER Basic Metabolic Panel (04/21/2020 5:28 AM MANUFACTURING FINANCE MANAGER)Only the most recent of3 results within the time period is included. Sodium 148 (H) 136 - 145 meq/L [facility] Potassium 3.9 3.5 - 5.1 meq/L [facility] Chloride 112 (H) 98 - 107 meq/L [facility] CO2 27 22 - 29 meq/L [facility] BUN 30 (H) 7 - 21 mg/dL [facility] Creatinine 1.02 0.57 - 1.25 [facility] mg/dL [facility] Glucose 172 (H) 70 - 105 mg/dL [facility] Calcium 9.2 8.4 - 10.2 [facility] mg/dL [facility] EGFR 69Comment: ESTIMATED mL/min/1.73 sq [facility] GFR IS NOT m [facility] CREATININE CLEARANCE IN PREDICTING GLOMERULAR FILTRATION RATE. ESTIMATED GFR IS NOT APPLICABLE FOR DIALYSIS PATIENTS. Specimen Blood Narrative Performed At Livestock Slaughterer ID - [facility] Performing Organization Address City/[facility]/Zipcode Phone Number [facility] [address] [place] [address] CENTER Vancomycin level, trough (04/20/2020 11:23 PM MANUFACTURING FINANCE MANAGER) Pathologist Sig nature Vancomycin Tr 5.9 (L) 10.0 - 20.0 ug/mL [facility] Specimen Blood Narrative Performed At Livestock Slaughterer ID - [facility] Performing Organization Address City/[facility]/Zipcode Phone Number [address] [address] CENTER SARS-CoV2/RT-PCR (Symptomatic ONLY) (04/19/2020 12:33 PM MANUFACTURING FINANCE MANAGER)Only the most recent of2 resultswithin the time period is included. SARS-COV2/RT-PCR Negative Not Detected, [facility] Negative, See [facility] external report CENTER for linked test SARS-COV-2 [facility] PERFORMING LAB [facility] Specimen Other - Nasopharyngeal wall structure (b олег structure) Narrative Performed At Negative results do not preclude SARS-CoV-2 [facility] infection and should not be used as the sole basis for patient management decisions. Negative results must be combined with clinical observations, patient history, and epidemiological information. A false negative result may occur if a specimen is improperly collected, transported or handled. The limit of detection for this assay is 250 copies/mL. This SARS CoV-2 test is a rapid, real-time RT-PCR test intended for the qualitative detection of nucleic acid from SARS-CoV-2 in a nasopharyngeal swab specimen collected from individuals suspected of COVID-19 by their healthcare provider. This test has not been Food and Drug Administration (FDA) cleared or approved and has been authorized by FDA under an Emergency Use Authorization (EUA). This EUA will be effective until the declaration that circumstances exist justifying the authorization of the emergency use of in vitro diagnostic tests for detection and/or diagnosis of COVID-19 is terminated under Section 564(b)(2) of the Act or the EUA is revoked under Section 564(g) of the Act. Fact Sheet for Healthcare Providers: https://www.[employer]/Documents/Xpert%20Xpre ss%20SARS%20CoV-2/Fact%20Sheets/3023802%20SAR S-COV-2%20HEALTHCARE%20PROVIDERS%20FACT%20SHEE T.pdf Fact Sheet for Healthcare Patients: https://www.[employer]/Documents/Xpert%20Xpre ss%20SARS%20CoV-2/Fact%20Sheets/3023801%20SAR S-COV-2%20PATIENT%20FACT%20SHEET.pdf Performing Laboratory: [address] [place] [address] Performing Organization Address City/State/Zipcode Phone Number [place] [phone] CENTER Urinalysis w/Microscopic + Reflex to Culture (04/19/2020 12:20 AM MANUFACTURING FINANCE MANAGER) Color, UA Yellow [facility] Clarity, UA Clear [facility] Specific [place], 1.021 1.001 - 1.035 [facility] pH, UA 6.0 5.0 - 8.0 [facility] Protein, UA 70 mg/dL (A) Negative [facility] Glucose, UA 150 mg/dL (A) Negative [facility] Ketones, UA 40 mg/dL (A) Negative [facility] Bilirubin, UA Negative Negative [facility] Blood, UA Small (A) Negative [facility] Nitrite, UA Negative Negative [facility] Leukocytes, UA Negative Negative [facility] Urobilinogen, UA 0.2 0.2 - 1.0 mg/dL [facility] RBC, UA 5 /HPF [facility] WBC, UA 5 /HPF [facility] Mucus Rare [facility] Granular Casts, UA 2 /LPF [facility] Specimen Source [facility] Specimen Urine - Urinary catheter, device (physic al object) Narrative Performed At Livestock Slaughterer ID - [auto] [facility] Livestock Slaughterer ID - tech Performing Organization Address [facility] Phone Number [address] [address] [place] Procalcitonin (04/18/2020 8:16 PM MANUFACTURING FINANCE MANAGER) Pathologist Sig nature Procalcitonin 0.31 (H) <0.05 ng/mL [facility] Specimen Blood Narrative Performed At SEPSIS RISK (ng/mL) [facility] Low: 0.05-0.50 Intermediate: 0.51-2.00 High: >=2.01 Performing Organization Address [facility] Phone Number [address] [address] [place] TSH/Free T4 If Indicated (04/18/2020 8:16 PM MANUFACTURING FINANCE MANAGER) Pathologist Sig nature TSH 1.038 0.350 - 4.940 uIU/mL [facility] Specimen Blood Narrative Performed At Livestock Slaughterer ID - ADMIN [facility] Performing Organization Address [facility] Phone Number [facility] [address] [address] [place] Lactic acid, venous (04/18/2020 8:16 PM MANUFACTURING FINANCE MANAGER) Pathologist Sig nature Lactate, Venous 1.31 0.50 - 2.20 mmol/L [facility] HEALT [facility] Specimen Blood Narrative Performed At Livestock Slaughterer ID - ADMIN [facility] Performing Organization Address [facility] Phone Number [address] [address] [place] Blood Culture - Routine (Left Venipuncture) (04/18/2020 8:16 PM MANUFACTURING FINANCE MANAGER)Only the most recent of2 resultswithin the time period is included. Pathologist Sig nature Result No growth in 5 days [facility] Specimen Blood - Entire left upper arm (body stru cture) Performing Organization Address [facility] Phone Number [address] [address] [place] Hemoglobin A1c (04/18/2020 8:16 PM MANUFACTURING FINANCE MANAGER) Pathologist Sig nature Hemoglobin A1C 6.4 (H) 4.3 - 6.1 % [facility] Specimen Blood Performing Organization Address [facility] Phone Number [address] [address] [place] Vancomycin level, random (04/18/2020 8:16 PM MANUFACTURING FINANCE MANAGER) Pathologist Sig nature Vancomycin Rm 4.1 ug/mL [facility] Specimen Blood Narrative Performed At Reference Range: No Normals [facility] Livestock Slaughterer ID - ADMIN Performing Organization Address [facility] Phone Number [address] [address] [place] Comprehensive metabolic panel (04/18/2020 8:16 PM MANUFACTURING FINANCE MANAGER) Protein, Total 6.0 6.0 - 8.3 [facility] gm/dL [facility] Albumin 3.3 (L) 3.5 - 5.0 [facility] g/dL [facility] Alkaline 59 40 - 150 U/L [facility] Phosphatase [facility] Total Bilirubin 0.7 0.2 - 1.2 [facility] mg/dL [facility] Sodium 146 (H) 136 - 145 [facility] meq/L [facility] Potassium 3.5 3.5 - 5.1 [facility] meq/L [facility] Chloride 108 (H) 98 - 107 [facility] meq/L [facility] CO2 28 22 - 29 meq/L [facility] BUN 35 (H) 7 - 21 mg/dL [facility] Creatinine 1.41 (H) 0.57 - 1.25 [facility] mg/dL [facility] Glucose 179 (H) 70 - 105 [facility] mg/dL [facility] Calcium 8.7 8.4 - 10.2 [facility] mg/dL [facility] AST 12 5 - 34 U/L [facility] ALT 10 6 - 55 U/L [facility] EGFR 48Comment: mL/min/1.73 [facility] ESTIMATED GFR IS sq [facility] NOT [facility] CREATININE CLEARANCE IN PREDICTING GLOMERULAR FILTRATION RATE. ESTIMATED GFR IS NOT APPLICABLE FOR DIALYSIS PATIENTS. Specimen Blood Narrative Performed At Livestock Slaughterer ID - ADMIN [facility] Performing Organization Address City/State/Zipcode Phone Number [facility] [address] [place] [address] CENTER XR chest 1 view portable / bedside (04/18/2020 7:40 PM MANUFACTURING FINANCE MANAGER) Specimen Narrative Performed At FINAL REPORT GE RIS RAD, CHEST, 1 VIEW, NON DEPT INDICATION: hypoxia COMPARISON: Prior day's exam FINDINGS: Portable frontal view of the c hest. IMPRESSION: Limited examination as the patient's rig ht upper extremity is draped over the right lower and mid chest. With in this constraint, results are as follows. Support Lines: Stable. Lungs and pleura: There is pulmonary brayan ous congestion without focal consolidation or pleural effusion. No pn eumothorax. Heart and mediastinum: Cardiac silhouett e is magnified by technique. Mild aortic arch calcifications. Additional findings: Prior cholecystecto my. 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 Signed: Hanh Johnson MD Report Verified Date/Time: 04/18/2020 20:01:59 Procedure Note Interface, External Ris In - 04/18/2020 8:04 PM MANUFACTURING FINANCE MANAGER FINAL REPORT RAD, CHEST, 1 VIEW, NON DEPT INDICATION: hypoxia COMPARISON: Prior day's exam FINDINGS: Portable frontal view of the c hest. IMPRESSION: Limited examination as the patient's rig ht upper extremity is draped over the right lower and mid chest. With in this constraint, results are as follows. Support Lines: Stable. Lungs and pleura: There is pulmonary brayan ous congestion without focal consolidation or pleural effusion. No pn eumothorax. Heart and mediastinum: Cardiac silhouett e is magnified by technique. Mild aortic arch calcifications. Additional findings: Prior cholecystecto my. 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 Signed: Hanh Johnson MD Report Verified Date/Time: 04/18/2020 2 0:01:59 Performing Organization Address City/State/Zipcode Phone Number [facility] [id number] (04/18/2020) Narrative Performed At This result has an attachment that is no t available. Ordered by an unspecified provider. after 05/19/2019 Advance Directives For more information, please contact: [phone] Code Status Date Activated Date Inactivated Comments Full Code 04/18/2020 7:15 PM 04/22/2020 3:21 PM This code status was determined by: Patient
--- OUTSIDE RECORDS SUMMARY | 2020-05-19 12:35 | XMS REPORT | Continuity of Care Document ---
:1935 Author Organization [facility] t Address [address] [place] [address] Care Team Providers Name Role Phone HAYES RHODES Attending Clinician Unavailable Meagan BECKETT, Hayes Attending Clinician Des BECKETT, Tico Attending Clinician Geovany Montgomery MD, Manisha Attending Clinician [phone] Sun BECKETT, Marycarmen Attending Clinician Rosendo BECKETT, T. Attending Clinician HAYES RHODES Admitting Clinician Unavailable Payers Payer Name Policy Type Policy Effective Date Expiration Date Sour ce Number MEDICAREMEDICARE A [id number] 1999 MERCEDES Howe [id number] 1998-P 00:00:00 - [facility] MEDICAIDMEDICAID OF [id number] 2020 MERCEDES Howe [id number] 00:00:00 - Medical 0-PresentMedicaid Center Problems Condition Condition Condition Status Onset Resolution Last Treating Co mments Source Name Details Category Date Date Treatment Clinician Date Sepsis Sepsis Disease Active 2019-06 MERCEDES Bolivar 06-18 Carley - 00:00: Medical 00 Center Allergies, Adverse Reactions, Alerts This patient has no known allergies or adverse reactions. Social History Social Habit Start Date Stop Date Quantity Comments Source Sex Assigned At [facility] Exposure to SARS-CoV-[address] [facility] Medical (event) Center Medications Ordered Filled Start Stop Current Ordering Indication Dosage Frequency Signature Comments Components Source Medication Medication Date Date Medication? Clinician (SIG) Name Name levoFLOXaci 2019-06 2020- No 500mg Q24H Take [address] [facility] 1-17 11-22 tablet [facility] - (LEVAQUIN) 00:00: 23:59 (500 mg Med ical 500 MG 00 :00 total) by Center tablet mouth daily for 5 days. furosemide 2019-0 Yes 1{tbl} Q.5D Take [address] [facility] (LASIX) 20 7-29 tablet by [facility] - MG tablet 00:00: mouth 2 Medic al 00 (two) Center times daily. hydrALAZINE 2019-0 Yes 1{tbl} Q.[id number] Take [address] [facility] (APRESOLINE 7-29 [id number] tablet by [facility] - ) 25 MG 00:00: 3D mouth 3 Medical tablet 00 (three) Center times daily. amLODIPine 2019-0 Yes 1{tbl} QD Take [address] [facility] (NORVASC) 7-27 tablet by [facility] - 2.5 MG 00:00: mouth Medical tablet 00 daily. [facility] aspirin 325 2019-0 Yes 1{tbl} QD Take [address] MG tablet 7-27 tablet by [facility] - 00:00: mouth Medical 00 daily. [facility] baclofen 2019-0 Yes 1{tbl} QD Take 1 [facility] (LIORESAL) 7-27 tablet by Luke [facility] - 10 MG 00:00: mouth Medical tablet 00 nightly. [facility] CARBIDOPA-L 2019-0 Yes 1{tbl} Take [address] EVODOPA 7-27 tablet by [facility] - ORAL 00:00: mouth Medical 00 every 6 Center (six) hours. citalopram 2019-0 Yes 1{tbl} QD Take [address] [facility] [address] (CeleXA) 10 7-27 tablet by Rene es - MG tablet 00:00: mouth Medical 00 nightly. [facility] fexofenadin 2019-0 Yes 1{tbl} QD Take [address] [facility] (ELANA) 7-27 tablet by Rene es - 180 MG 00:00: mouth Medical tablet 00 daily. [facility] gabapentin 2019-0 Yes 2{capsu Q.5D Take [address] (NEURONTIN) 7-27 le} capsules Luke [facility] - 100 MG 00:00: by mouth 2 Medic al capsule 00 (two) Center times daily. galantamine 2019-0 Yes 1{capsu QD Take [address] (RAZADYNE 7-27 le} capsule by Luke [facility] - ER) 24 MG 00:00: mouth Medical 24 hr 00 daily. Center capsule lisinopriL 0 Yes 1{tbl} QD Take [address] [facility] (PRINIVIL,Z 7-27 tablet by Rene es - ESTRIL) 30 00:00: mouth Medica l MG tablet 00 daily. Center melatonin 3 2019-0 Yes 3{capsu Take [address] mg Cap 7-27 le} capsules [facility] - 00:00: by mouth Medical 00 every Center night as needed. metFORMIN Yes 1{tbl} Q.5D Take [address] [facility] (Glucophage 7-27 tablet by Rene es - ) 1000 MG 00:00: mouth 2 Medic al tablet 00 (two) Center times daily. mirabegron Yes 1{tbl} QD Take [address] [facility] [address] (MYRBETRIQ) 7-27 tablet by Rene es - 25 mg Tb24 00:00: mouth Medica l ER tablet 00 daily. [facility] rOPINIRole Yes 2{tbl} Q.[id number] Take [address] [facility] (Requip) 1 7-27 [id number] tablets by [facility] - MG tablet 00:00: 3D mouth 3 Medic al 00 (three) Center times daily. Vital Signs Vital Name Observation Time Observation Value Comments Source Systolic blood 2020-04-22 08:34:00 170 mm[Hg] [facility] Diastolic blood 2020-04-22 08:34:00 78 mm[Hg] [facility] S t [facility] Heart rate 2020-04-22 08:34:00 56 /min [facility] Body temperature 2020-04-22 08:34:[address] [facility] Respiratory rate 2020-04-22 08:34:00 18 /min [facility] Oxygen saturation in 2020-04-22 08:34:00 97 /min [facility] - Arterial blood by Medical Ce nter Pulse oximetry Body weight 2020-04-20 03:00:00 74.2 kg [facility] BMI 2020-04-20 03:00:00 23.47 kg/m2 [facility] Body height 2020-04-18 21:00:00 177.8 cm [facility] Procedures Procedure Date / Time Performing Clinician Source Performed POCT-GLUCOSE METER 2020-04-22 08:24:00 Sun, [facility] POCT-GLUCOSE METER 2020-04-21 21:15:00 Sun, [facility] POCT-GLUCOSE METER 2020-04-21 17:28:00 Sun, [facility] POCT-GLUCOSE METER 2020-04-21 12:47:00 Sun, [facility] POCT-GLUCOSE METER 2020-04-21 08:02:00 Sun, [facility] BASIC METABOLIC PANEL (7) 2020-04-21 05:28:[address] [facility] MAGNESIUM 2020-04-21 05:28:[address] [facility] PHOSPHORUS 2020-04-21 05:28:[address] [facility] CBC W/PLT COUNT & AUTO 2020-04-21 05:28:00 Stephanie Magallon [facility] VANCOMYCIN LEVEL, TROUGH 2020-04-20 23:23:[address] [facility] POCT-GLUCOSE METER 2020-04-20 21:32:00 [facility] POCT-GLUCOSE METER 2020-04-20 16:23:00 [facility] BASIC METABOLIC PANEL (7) 2020-04-20 04:20:[address] [facility] MAGNESIUM 2020-04-20 04:20:[address] [facility] PHOSPHORUS 2020-04-20 04:20:00 [facility] W/PLT COUNT & AUTO 2020-04-20 04:20:00 Paul Carter [facility] DIFFERENTIAL [facility] POCT-GLUCOSE METER 2020-04-19 21:53:00 Rudolph Nunes [facility] POCT-GLUCOSE METER 2020-04-19 16:48:00 Des [facility] [address] [facility] SARS-COV2/RT-PCR ([facility] & 2020-04-19 12:33:00 Rudolph Nunes [facility] - REF LABS) [facility] POCT-GLUCOSE METER 2020-04-19 12:29:00 [facility] PO[facility]SE [facility]ER 2020-04-19 07:48:00 Des [facility] [address] BASIC METABOLIC PANEL (7) 2020-04-19 03:50:[address] [facility] MAGNESIUM 2020-04-19 03:50:[address] [facility] PHOSPHORUS 2020-04-19 03:50:00 [facility] CBC W/PLT COUNT & AUTO 2020-04-19 03:50:00 Paul Carter [facility] URINALYSIS W/ REFLEX 2020-04-19 00:20:00 Paul Carter [facility] - URINE CULTURE [facility] POCT-GLUCOSE METER 2020-04-18 22:35:00 Saba Rhodes [facility] CBC W/PLT COUNT & AUTO 2020-04-18 20:18:00 Mell Cleaning [facility] BLOOD CULTURE 2020-04-18 20:16:[address] [facility] COMPREHENSIVE METABOLIC 2020-04-18 20:16:00 Cesar Carterlando [facility] LACTIC ACID, VENOUS 2020-04-18 20:16:00 [place] [facility] PROCALCITONIN 2020-04-18 20:16:00 Carter [facility] TSH/FREE T4 IF INDICATED 2020-04-18 20:16:00 [place] [facility] HEMOGLOBIN A1C 2020-04-18 20:16:00 Carter [facility] VANCOMYCIN LEVEL, RANDOM 2020-04-18 20:16:[address] [facility] XR CHEST 1 VIEW 2020-04-18 19:40:00 Carter, [facility] PORTABLE/BEDSIDE [facility] REPORT OF PROCEDURE - 2020-04-18 00:00:00 Provider, Sirisha [facility] ENDOSCOPY SCAN Scanning [facility] SARS-COV2/RT-PCR ([facility] & 2019-12-30 20:40:00 [facility] REF LABS) [facility] Plan of Care Planned Activity Planned Date Details Comments Source Future Scheduled 2020-02-05 INFLUENZA VACCINE (#1) [facility] Test 00:00:00 [code = INFLUENZA Medical Ce nter VACCINE (#1)] Future Scheduled 2000-02-06 MEDICARE ANNUAL [facility] - Test 00:00:00 WELLNESS (YEAR 2 or [facility] FIRST YEAR if no IPPE) [code = MEDICARE ANNUAL WELLNESS (YEAR 2 or FIRST YEAR if no IPPE)] Future Scheduled 1999 PNEUMOCOCCAL 65+ YRS [facility] - Test 00:00:00 (1 of 1 - [facility] [id number] PCV13) [code = PNEUMOCOCCAL 65+ YRS (1 of - [id number] PCV13)] Results Test Description Test Time Test Comments Results Result Comments Source Blood Culture - Routine (Left Venipuncture) 2020-04-23 22:00 :00 Test Item Value Reference Range Interpretation Comme nts Result (test code = 6463-4) No growth [facility] [address] [facility] [id number] 22:00:00 Test Item Value Reference Range Interpretation Comments CULTURE (BEAKER) (test No growth in 5 days code = 1095) BLOOD [id number] 22:00:00 Test Item Value Reference Range Interpretation Comments CULTURE (BEAKER) (test No growth in 5 days code = 1095) POC-Glucose [id number] 08:35:00 Test Item Value Reference Range Interpretation Comments POC-Glucose Meter (test 192 mg/dL 70-110 H : TE STED AT [facility] code = 1538) [address] [facility], 770 30: Chair Car Attendant/Techni anitha ID = [id number] for LISA - MADHAVI IS, DWIGHT Lab Interpretation (test Abnormal code = 02483-4) [facility] [id number] 08:35:00 Test Item Value Reference Range Interpretation Comments POC-GLUCOSE METER 192 mg/dL 70-110 H : TESTED A T [facility] 6720 (BEAKER) (test code [facility], = 1538) [address]: Chair Car Attendant/Techni anitha ID = [id number] for LATT IMORE - SHREE, DWIGHT POCT-GLUCOSE [id number] 21:29:00 Test Item Value Reference Range Interpretation Comments POC-GLUCOSE METER 160 mg/dL 70-110 H : TESTED A T [facility] 6720 (BEAKER) (test code = [facility], 1538) [address]: Chair Car Attendant/Techni anitha ID = [id number] for CA RBAJAL, EM POCT-GLUCOSE [id number] 17:43:00 Test Item Value Reference Range Interpretation Comments POC-GLUCOSE METER 184 mg/dL 70-110 H : TESTED A T [facility] 6720 (BEAKER) (test code [facility], = 1538) [address]: Chair Car Attendant/Techni anitha ID = [id number] for LATT IMORE - SHREE, DWIGHT POCT-GLUCOSE [id number] 12:59:00 Test Item Value Reference Range Interpretation Comments POC-GLUCOSE METER 182 mg/dL 70-110 H : TESTED A T [facility] 6720 (BEAKER) (test code [facility], = 1538) [address]: Chair Car Attendant/Techni anitha ID = [id number] for LATT IMORE - SHREE, DWIGHT POCT-GLUCOSE [id number] 08:14:00 Test Item Value Reference Range Interpretation Comments POC-GLUCOSE METER 165 mg/dL 70-110 H : TESTED A T [facility] 6720 (BEAKER) (test code [place], = 1538) [address]: Chair Car Attendant/Techni anitha ID = [id number] for DWIGHT RILEY Basic Metabolic [id number] 06:18:00 Test Item Value Reference Range Interpretation Comments Sodium (test code = 148 meq/L 136-145 H 2951-2) Potassium (test code = 3.9 meq/L 3.5-5.1 2823-3) Chloride (test code = 112 meq/L 98-107 H 2075-0) CO2 (test code = 27 meq/L 22-29 2028-9) BUN (test code = 30 mg/dL 7-21 H 3094-0) Creatinine (test code 1.02 mg/dL 0.57-1.25 = 2160-0) Glucose (test code = 172 mg/dL 70-105 H 2345-7) Calcium (test code = 9.2 mg/dL 8.4-10.2 26688-7) EGFR (test code = 69 mL/min/1.73 sq [facility] [place] [address]-6) NOT ACCURATE CREATININE CLEARANCE IN PREDICTING GLOMERULAR FILTRATION RATE . ESTIMATED GFR I S NOT APPLICABLE FOR DIALYSIS PATIENTS. BLADE (test code = BLADE) Chair Car Attendant ID - EDASI Lab Interpretation Abnormal (test code = 96021-8) [facility]esium2020-[facility]-16 06:18:00 Test Item Value Reference Range Interpretation Comments Magnesium (test code = 1.7 mg/dL 1.6-2.6 68588-7) BLADE (test code = BLADE) Chair Car Attendant ID - EDASI Lab Interpretation (test Normal code = 02094-1) [facility]2020-11-16 06:18:00 Test Item Value Reference Range Interpretation Comments Phosphorus (test code = 2.2 mg/dL 2.3-4.7 L 2777-1) BLADE (test code = BLADE) Chair Car Attendant ID - EDASI Lab Interpretation (test Abnormal code = 29616-5) [facility] Hospital[facility]IC METABOLIC [id number] 06:18:00 Test Item Value Reference Range Interpretation Comments SODIUM (BEAKER) 148 meq/L 136-145 H (test code = 381) POTASSIUM (BEAKER) 3.9 meq/L 3.5-5.1 (test code = 379) CHLORIDE (BEAKER) 112 meq/L 98-107 H (test code = 382) CO2 (BEAKER) (test 27 meq/L 22-29 code = 355) BLOOD UREA NITROGEN 30 mg/dL 7-21 H (BEAKER) (test code = 354) CREATININE (BEAKER) 1.02 mg/dL 0.57-1.25 (test code = 358) GLUCOSE RANDOM 172 mg/dL 70-105 H (BEAKER) (test code = 652) CALCIUM (BEAKER) 9.2 mg/dL 8.4-10.2 (test code = 697) EGFR (BEAKER) (test 69 mL/min/1.73 ESTIMA ANN-MARIE GFR IS code = 1092) sq m NOT ACCURATE CREATININE CLEARANCE IN PREDICTING GLOMERULAR FILTRATION RATE . ESTIMATED GFR I S NOT APPLICABLE FOR DIALYSIS PATIEN TS. Chair Car Attendant ID - [id number] 06:18:00 Test Item Value Reference Range Interpretation Comments MAGNESIUM (BEAKER) (test code = 1.7 mg/dL 1.6-2.6 627) Chair Car Attendant ID - [id number] 06:18:00 Test Item Value Reference Range Interpretation Comments PHOSPHORUS (BEAKER) (test code = 2.2 mg/dL 2.3-4.7 L 604) Chair Car Attendant ID - EDASICBC with platelet count + automated [id number] 05:46:00 Test Item Value Reference Range Interpretation Comments WBC (test code = 6690-2) 13.0 3.5- 10.5 K/L H RBC (test code = 789-8) 4.02 4.63- 6.08 M/L L MCHC (test code = 786-4) 31.6 32.3- 36.5 GM/DL L Hematocrit (test code = 4544-3) 38.0 % 40.1-51 L MCV (test code = 787-2) 94.5 fL 79-92.2 H MCH (test code = 785-6) 29.9 pg 25.7-32.2 RDW (test code = 788-0) 12.1 % 11.6-14.4 Platelets (test code = 777-3) 269 150- 450 K/CU MM MPV (test code = 34339-0) 10.4 fL 9.4-12.4 nRBC (test code = 413) 0 0- 0 /100 WBC % Neutros (test code = 429) 81 % % Lymphs (test code = 430) 12 % % Monos (test code = 431) 5 % % Eos (test code = 432) 1 % % Baso (test code = 437) 1 % # Neutros (test code = 670) 10.43 1.78- 5.38 K/L H # Lymphs (test code = 414) 1.52 1.32- 3.57 K/L # Monos (test code = 415) 0.62 0.30- 0.82 K/L # Eos (test code = 416) 0.18 0.04- 0.54 K/L # Baso (test code = 417) 0.08 0.01- 0.08 K/L Immature Granulocytes-Relative 1 % 0-1 (test code = 2801) Lab Interpretation (test code = Abnormal 99241-6) [facility] W/PLT COUNT & AUTO [id number] 05:46:00 Test Item Value Reference Range Interpretation Comments WHITE BLOOD CELL COUNT (BEAKER) 13.0 K/ L 3.5-10.5 H (test code = 775) RED BLOOD CELL COUNT (BEAKER) 4.02 M/ L 4.63-6.08 L (test code = 761) HEMOGLOBIN (BEAKER) (test code = 12.0 GM/DL 13.7-17.5 L 410) HEMATOCRIT (BEAKER) (test code = 38.0 % 40.1-51.0 L 411) MEAN CORPUSCULAR VOLUME (BEAKER) 94.5 fL 79.0-92.2 H (test code = 753) MEAN CORPUSCULAR HEMOGLOBIN 29.9 pg 25.7-32.2 (BEAKER) (test code = 751) MEAN CORPUSCULAR HEMOGLOBIN CONC 31.6 GM/DL 32.3-36.5 L (BEAKER) (test code = 752) RED CELL DISTRIBUTION WIDTH 12.1 % 11.6-14.4 (BEAKER) (test code = 412) PLATELET COUNT (BEAKER) (test 269 K/CU MM 150-450 code = 756) MEAN PLATELET VOLUME (BEAKER) 10.4 fL 9.4-12.4 (test code = 754) NUCLEATED RED BLOOD CELLS 0 /100 WBC 0-0 (BEAKER) (test code = 413) NEUTROPHILS RELATIVE PERCENT 81 % (BEAKER) (test code = 429) LYMPHOCYTES RELATIVE PERCENT 12 % (BEAKER) (test code = 430) MONOCYTES RELATIVE PERCENT 5 % (BEAKER) (test code = 431) EOSINOPHILS RELATIVE PERCENT 1 % (BEAKER) (test code = 432) BASOPHILS RELATIVE PERCENT 1 % (BEAKER) (test code = 437) NEUTROPHILS ABSOLUTE COUNT 10.43 K/ L 1.78-5.38 H (BEAKER) (test code = 670) LYMPHOCYTES ABSOLUTE COUNT 1.52 K/ L 1.32-3.57 (BEAKER) (test code = 414) MONOCYTES ABSOLUTE COUNT (BEAKER) 0.62 K/ L 0.30-0.82 (test code = 415) EOSINOPHILS ABSOLUTE COUNT 0.18 K/ L 0.04-0.54 (BEAKER) (test code = 416) BASOPHILS ABSOLUTE COUNT (BEAKER) 0.08 K/ L 0.01-0.08 (test code = 417) IMMATURE GRANULOCYTES-RELATIVE 1 % 0-1 PERCENT (BEAKER) (test code = 2801) Vancomycin level, [id number] 23:59:00 Test Item Value Reference Range Interpretation Comments Vancomycin Tr (test code = 5.9 ug/mL 10-20 L 4092-3) BLADE (test code = BLADE) Chair Car Attendant ID - EDASI Lab Interpretation (test Abnormal code = 23617-9) [facility] LEVEL, [id number] 23:59:00 Test Item Value Reference Range Interpretation Comments VANCOMYCIN TROUGH (BEAKER) (test 5.9 ug/mL 10.0-20.0 L code = 522) Chair Car Attendant ID - EDASIPOCT-GLUCOSE [id number] 21:46:00 Test Item Value Reference Range Interpretation Comments POC-GLUCOSE METER 158 mg/dL 70-110 H : TESTED A T [facility] 6720 (BEAKER) (test code = [place], 1538) [address]: Chair Car Attendant/Techni anitha ID = [id number] for GELY SAMANO POCT-GLUCOSE [id number] 16:43:00 Test Item Value Reference Range Interpretation Comments POC-GLUCOSE METER 179 mg/dL 70-110 H : TESTED A T [facility] 6720 (BEAKER) (test code = [place], 1538) [address]: Chair Car Attendant/Techni anitha ID = [id number] for JESSICA ALVAREZ BASIC METABOLIC [id number] 05:08:00 Test Item Value Reference Range Interpretation Comments SODIUM (BEAKER) 146 meq/L 136-145 H (test code = 381) POTASSIUM (BEAKER) 3.8 meq/L 3.5-5.1 (test code = 379) CHLORIDE (BEAKER) 110 meq/L 98-107 H (test code = 382) CO2 (BEAKER) (test 25 meq/L 22-29 code = 355) BLOOD UREA NITROGEN 32 mg/dL 7-21 H (BEAKER) (test code = 354) CREATININE (BEAKER) 1.04 mg/dL 0.57-1.25 (test code = 358) GLUCOSE RANDOM 150 mg/dL 70-105 H (BEAKER) (test code = 652) CALCIUM (BEAKER) 8.8 mg/dL 8.4-10.2 (test code = 697) EGFR (BEAKER) (test 68 mL/min/1.73 ESTIMA ANN-MARIE GFR IS code = 1092) sq m NOT ACCURATE CREATININE CLEARANCE IN PREDICTING GLOMERULAR FILTRATION RATE . ESTIMATED GFR I S NOT APPLICABLE FOR DIALYSIS PATIEN TS. Chair Car Attendant ID - [id number] 05:08:00 Test Item Value Reference Range Interpretation Comments PHOSPHORUS (BEAKER) (test code = 2.4 mg/dL 2.3-4.7 604) Chair Car Attendant ID - [id number] 05:07:00 Test Item Value Reference Range Interpretation Comments MAGNESIUM (BEAKER) (test code = 1.8 mg/dL 1.6-2.6 627) Chair Car Attendant ID - EDASICBC W/PLT COUNT & AUTO [id number] 04:50:00 Test Item Value Reference Range Interpretation Comments WHITE BLOOD CELL COUNT (BEAKER) 15.5 K/ L 3.5-10.5 H (test code = 775) RED BLOOD CELL COUNT (BEAKER) 3.77 M/ L 4.63-6.08 L (test code = 761) HEMOGLOBIN (BEAKER) (test code = 11.3 GM/DL 13.7-17.5 L 410) HEMATOCRIT (BEAKER) (test code = 36.7 % 40.1-51.0 L 411) MEAN CORPUSCULAR VOLUME (BEAKER) 97.3 fL 79.0-92.2 H (test code = 753) MEAN CORPUSCULAR HEMOGLOBIN 30.0 pg 25.7-32.2 (BEAKER) (test code = 751) MEAN CORPUSCULAR HEMOGLOBIN CONC 30.8 GM/DL 32.3-36.5 L (BEAKER) (test code = 752) RED CELL DISTRIBUTION WIDTH 12.3 % 11.6-14.4 (BEAKER) (test code = 412) PLATELET COUNT (BEAKER) (test 231 K/CU MM 150-450 code = 756) MEAN PLATELET VOLUME (BEAKER) 10.1 fL 9.4-12.4 (test code = 754) NUCLEATED RED BLOOD CELLS 0 /100 WBC 0-0 (BEAKER) (test code = 413) NEUTROPHILS RELATIVE PERCENT 83 % (BEAKER) (test code = 429) LYMPHOCYTES RELATIVE PERCENT 10 % (BEAKER) (test code = 430) MONOCYTES RELATIVE PERCENT 5 % (BEAKER) (test code = 431) EOSINOPHILS RELATIVE PERCENT 1 % (BEAKER) (test code = 432) BASOPHILS RELATIVE PERCENT 1 % (BEAKER) (test code = 437) NEUTROPHILS ABSOLUTE COUNT 12.87 K/ L 1.78-5.38 H (BEAKER) (test code = 670) LYMPHOCYTES ABSOLUTE COUNT 1.48 K/ L 1.32-3.57 (BEAKER) (test code = 414) MONOCYTES ABSOLUTE COUNT (BEAKER) 0.74 K/ L 0.30-0.82 (test code = 415) EOSINOPHILS ABSOLUTE COUNT 0.20 K/ L 0.04-0.54 (BEAKER) (test code = 416) BASOPHILS ABSOLUTE COUNT (BEAKER) 0.08 K/ L 0.01-0.08 (test code = 417) IMMATURE GRANULOCYTES-RELATIVE 1 % 0-1 PERCENT (BEAKER) (test code = 2801) POCT-GLUCOSE [id number] 22:05:00 Test Item Value Reference Range Interpretation Comments POC-GLUCOSE METER 155 mg/dL 70-110 H : TESTED A T [facility] 6720 (BEAKER) (test code = [place], 1538) [address]: Chair Car Attendant/Techni anitha ID = [id number] for NOAH MERIDA POCT-GLUCOSE [id number] 17:00:00 Test Item Value Reference Range Interpretation Comments POC-GLUCOSE METER 149 mg/dL 70-110 H : TESTED A T [facility] 6720 (BEAKER) (test code = LAQUITA [place] [facility], 1538) [address]: Chair Car Attendant/Techni anitha ID = [id number] for Id lsh (contract), [facility] lsea SARS-CoV2/RT-PCR (Symptomatic ONLY)2020-04-19 14:05:00 Test Item Value Reference Range Interpretation Comments SARS-COV2/RT-PCR Negative Not Detected, (test code = Negative, See 95882-5) external report for linked test SARS-COV-2 [facility] PERFORMING LAB (test code = 33380-6) BLADE (test code = Negative results do not BLADE) preclude SARS-CoV-2 infection and should not be used as [...] of the Act. Fact Sheet for Healthcare Providers:https://www.LiveBuzz.ITegris/Documents/Xper t%20Xpress%20SARS%20CoV- 2/Fact%20Sheets/130-6036 %75HBWS-QVF-0%20HEALTHCA RE%20PROVIDERS%20FACT%20 SHEET.pdf Fact Sheet for Healthcare Patients:https://www.Zipdial/Documents/Xpert %20Xpress%20SARS%20CoV-2 /Fact%20Sheets/3023801% 85NEFT-MGJ-2%20PATIENT%2 0FACT%20SHEET.pdf Performing Laboratory:[facility] [place] [address] [facility]OV2/RT-PCR ([facility] REF [facility])2020-04-19 14:05:00 Test Item Value Reference Range Interpretation Comments SARS-COV2/RT-PCR (test code Negative Not Detected, Negative, = 1981877) See external report for linked test SARS-COV-[address] [facility] (test code = 6429920) Negative results do not preclude SARS-CoV-2 infection and should not be used as the sole basis for patient management decisions. Negative results must be combined with clinical observations, patient history, and epidemiological information. A false negative result may occur if a specimen is improperly collected, transported or handled.The limit of detection for this assay is 250 copies/mL.This SARS CoV-2 test is a rapid, real-time RT-PCR test intended for the qualitative detection of nucleic acid from SARS-CoV-2 in a nasopharyngeal swab specimen collected from individuals suspected of COVID-19 by their healthcare provider.This test has not been Food and Drug [...] is revoked under Section 564(g) of the Act.Fact Sheet for Healthcare Pro viders:https://www.[employer]/Documents/Xpert%20Xpress%20SARS%20CoV-2/Fact%20Sh eets/3023802%14PCIA-LXL-4%20HEALTHCARE%20PROVIDERS%20FACT%20SHEET.pdfFact Sheet for Healthcare Patients:https://www.[employer].com/Documents/Xpert%20Xpress%20SARS%20CoV-2/Fact%20Sheets/302-3801%20SARS-COV -2%20PATIENT%20FACT%20SHEET.pdfPerforming Laboratory:[facility], [place] [id number] 12:40:00 Test Item Value Reference Range Interpretation Comments POC-GLUCOSE METER 149 mg/dL 70-110 H : TESTED A T [facility] 6720 (BEAKER) (test code = LQAUITA Trujillo [facility], 1538) [address]: Chair Car Attendant/Techni anitha ID = [id number] for [facility] (contract), [facility] lsea Hemoglobin [id number] 08:56:00 Test Item Value Reference Range Interpretation Comments Hemoglobin A1C (test code = 4548-4) 6.4 % 4.3-6.1 H Lab Interpretation (test code = Abnormal 51101-6) [facility] [id number] 08:56:00 Test Item Value Reference Range Interpretation Comments HEMOGLOBIN A1C (BEAKER) (test code = 6.4 % 4.3-6.1 H 368) POCT-GLUCOSE [id number] 08:00:00 Test Item Value Reference Range Interpretation Comments POC-GLUCOSE METER 146 mg/dL 70-110 H : TESTED A T [facility] 6720 (BEAKER) (test code [facility], = 1538) [address]: Chair Car Attendant/Techni anitha ID = [id number] for MALOU ORTIZ Urinalysis w/Microscopic + Reflex to [id number] 07:11:00 Test Item Value Reference Range Interpretation Comments Color, UA (test code = Yellow 5778-6) Clarity, UA (test code = Clear 5767-9) Specific [place], UA (test 1.021 1.001-1.035 code = 5811-5) pH, UA (test code = 6.0 5.0-8.0 5803-2) Protein, UA (test code = 70 mg/dL Negative A 54990-2) Glucose, UA (test code = 150 mg/dL Negative A 365) Ketones, UA (test code = 40 mg/dL Negative A 2514-8) Bilirubin, UA (test code = Negative Negative 96826-4) Blood, UA (test code = Small Negative A 03253-8) Nitrite, UA (test code = Negative Negative 5802-4) Leukocytes, UA (test code Negative Negative = 5799-2) Urobilinogen, UA (test 0.2 mg/dL 0.2-1 code = 41250-2) RBC, UA (test code = 5 /HPF 84621-5) WBC, UA (test code = 5 /HPF 5821-4) Mucus (test code = 8247-9) Rare Granular Casts, UA (test 2 /LPF code = 5793-5) Specimen Source (test code = 2795) BLADE (test code = BLADE) Chair Car Attendant ID - [auto]Chair Car Attendant ID - tech Lab Interpretation (test Abnormal code = 43107-2) [facility]/ REFLEX URINE [id number] 07:11:00 Test Item Value Reference Range Interpretation Comments COLOR (BEAKER) (test code = 470) Yellow CLARITY (BEAKER) (test code = 469) Clear SPECIFIC GRAVITY UA (BEAKER) (test 1.021 1.001-1.035 code = 468) PH UA (BEAKER) (test code = 467) 6.0 5.0-8.0 PROTEIN UA (BEAKER) (test code = 70 mg/dL Negative A 464) GLUCOSE UA (BEAKER) (test code = 150 mg/dL Negative A 365) KETONES UA (BEAKER) (test code = 40 mg/dL Negative A 371) BILIRUBIN UA (BEAKER) (test code = Negative Negative 462) BLOOD UA (BEAKER) (test code = 461) Small Negative A NITRITE UA (BEAKER) (test code = Negative Negative 465) LEUKOCYTE ESTERASE UA (BEAKER) Negative Negative (test code = 466) UROBILINOGEN UA (BEAKER) (test code 0.2 mg/dL 0.2-1.0 = 463) RBC UA (BEAKER) (test code = 519) 5 /HPF WBC UA (BEAKER) (test code = 520) 5 /HPF MUCUS (BEAKER) (test code = 1574) Rare GRANULAR CASTS (BEAKER) (test code 2 /LPF = 515) SOURCE(BEAKER) (test code = 2795) Chair Car Attendant ID - [auto]Chair Car Attendant ID - techBASIC METABOLIC [id number] 05:00:00 Test Item Value Reference Range Interpretation Comments SODIUM (BEAKER) 143 meq/L 136-145 (test code = 381) POTASSIUM (BEAKER) 3.7 meq/L 3.5-5.1 (test code = 379) CHLORIDE (BEAKER) 108 meq/L 98-107 H (test code = 382) CO2 (BEAKER) (test 25 meq/L 22-29 code = 355) BLOOD UREA NITROGEN 33 mg/dL 7-21 H (BEAKER) (test code = 354) CREATININE (BEAKER) 1.20 mg/dL 0.57-1.25 (test code = 358) GLUCOSE RANDOM 196 mg/dL 70-105 H (BEAKER) (test code = 652) CALCIUM (BEAKER) 8.4 mg/dL 8.4-10.2 (test code = 697) EGFR (BEAKER) (test 57 mL/min/1.73 ESTIMA ANN-MARIE GFR IS code = 1092) sq m NOT ACCURATE CREATININE CLEARANCE IN PREDICTING GLOMERULAR FILTRATION RATE . ESTIMATED GFR I S NOT APPLICABLE FOR DIALYSIS PATIEN TS. Chair Car Attendant ID - [id number] 05:00:00 Test Item Value Reference Range Interpretation Comments MAGNESIUM (BEAKER) (test code = 1.5 mg/dL 1.6-2.6 L 627) Chair Car Attendant ID - [id number] 05:00:00 Test Item Value Reference Range Interpretation Comments PHOSPHORUS (BEAKER) (test code = 2.6 mg/dL 2.3-4.7 604) Chair Car Attendant ID - ADMINCBC W/PLT COUNT & AUTO [id number] 04:26:00 Test Item Value Reference Range Interpretation Comments WHITE BLOOD CELL COUNT (BEAKER) 18.3 K/ L 3.5-10.5 H (test code = 775) RED BLOOD CELL COUNT (BEAKER) 3.69 M/ L 4.63-6.08 L (test code = 761) HEMOGLOBIN (BEAKER) (test code = 11.1 GM/DL 13.7-17.5 L 410) HEMATOCRIT (BEAKER) (test code = 35.1 % 40.1-51.0 L 411) MEAN CORPUSCULAR VOLUME (BEAKER) 95.1 fL 79.0-92.2 H (test code = 753) MEAN CORPUSCULAR HEMOGLOBIN 30.1 pg 25.7-32.2 (BEAKER) (test code = 751) MEAN CORPUSCULAR HEMOGLOBIN CONC 31.6 GM/DL 32.3-36.5 L (BEAKER) (test code = 752) RED CELL DISTRIBUTION WIDTH 12.4 % 11.6-14.4 (BEAKER) (test code = 412) PLATELET COUNT (BEAKER) (test 196 K/CU MM 150-450 code = 756) MEAN PLATELET VOLUME (BEAKER) 9.9 fL 9.4-12.4 (test code = 754) NUCLEATED RED BLOOD CELLS 0 /100 WBC 0-0 (BEAKER) (test code = 413) NEUTROPHILS RELATIVE PERCENT 88 % (BEAKER) (test code = 429) LYMPHOCYTES RELATIVE PERCENT 7 % (BEAKER) (test code = 430) MONOCYTES RELATIVE PERCENT 4 % (BEAKER) (test code = 431) EOSINOPHILS RELATIVE PERCENT 0 % (BEAKER) (test code = 432) BASOPHILS RELATIVE PERCENT 0 % (BEAKER) (test code = 437) NEUTROPHILS ABSOLUTE COUNT 16.03 K/ L 1.78-5.38 H (BEAKER) (test code = 670) LYMPHOCYTES ABSOLUTE COUNT 1.31 K/ L 1.32-3.57 L (BEAKER) (test code = 414) MONOCYTES ABSOLUTE COUNT (BEAKER) 0.79 K/ L 0.30-0.82 (test code = 415) EOSINOPHILS ABSOLUTE COUNT 0.03 K/ L 0.04-0.54 L (BEAKER) (test code = 416) BASOPHILS ABSOLUTE COUNT (BEAKER) 0.08 K/ L 0.01-0.08 (test code = 417) IMMATURE GRANULOCYTES-RELATIVE 0 % 0-1 PERCENT (BEAKER) (test code = 2801) POCT-GLUCOSE [id number] 22:46:00 Test Item Value Reference Range Interpretation Comments POC-GLUCOSE METER 173 mg/dL 70-110 H : TESTED A T [facility] 6720 (BEAKER) (test code = LAQUITA CRAWFORD, 1538) 85355: Chair Car Attendant/Techni anitha ID = [id number] for FA RMER, ALEXIS TSH/Free T4 If [id number] 21:38:00 Test Item Value Reference Range Interpretation Comments TSH (test code = 1.038 0.350- 4.940 uIU/mL 80779-8) BLADE (test code = BLADE) Chair Car Attendant ID - ADMIN Lab Interpretation (test Normal code = 54566-2) [facility] T4 IF [id number] 21:38:00 Test Item Value Reference Range Interpretation Comments THYROID STIMULATING HORMONE 1.038 uIU/mL 0.350-4.940 (BEAKER) (test code = 772) Chair Car Attendant ID - [id number] 21:28:00 Test Item Value Reference Range Interpretation Comments Procalcitonin (test code = 0.31 ng/mL <0.05 H 99009-6) BLADE (test code = BLADE) SEPSIS RISK (ng/mL)Low: 0.05-0.50Intermedi ate: 0.51-2.00High: >=2.01 Lab Interpretation (test Abnormal code = 64170-6) [facility] HospitalPROCALCITONIN2020-11-13 21:28:00 Test Item Value Reference Range Interpretation Comments PROCALCITONIN (BEAKER) (test code 0.31 ng/mL <0.05 H = 3036) SEPSIS RISK (ng/mL)Low: 0.05-0.50Intermediate: 0.51-2.00High: >=2.01Vancomycin level, [id number] 21:16:00 Test Item Value Reference Range Interpretation Comments Vancomycin Rm (test 4.1 ug/mL code = 97782-5) BLADE (test code = Reference Range: No BLADE) NormalsOperator ID - ADMIN [facility] HospitalVANCOMYCIN LEVEL, [id number] 21:16:00 Test Item Value Reference Range Interpretation Comments VANCOMYCIN RANDOM (BEAKER) (test 4.1 ug/mL code = 523) Reference Range: No NormalsOperator ID - ADMINComprehensive metabolic panel 2020-04-18 20:56:00 Test Item Value Reference Range Interpretation Comments Protein, Total (test 6.0 6.0- 8.3 gm/dL code = 2885-2) Albumin (test code = 3.3 g/dL 3.5-5 L 47610-8) Alkaline Phosphatase 59 U/L 40-150 (test code = 6768-6) Total Bilirubin (test 0.7 mg/dL 0.2-1.2 code = 1974-2) Sodium (test code = 146 meq/L 136-145 H 2951-2) Potassium (test code = 3.5 meq/L 3.5-5.1 2823-3) Chloride (test code = 108 meq/L 98-107 H 5-0) CO2 (test code = 28 meq/L 22-29 8-9) BUN (test code = 35 mg/dL 7-21 H 3094-0) Creatinine (test code 1.41 mg/dL 0.57-1.25 H = 2160-0) Glucose (test code = 179 mg/dL 70-105 H 2345-7) Calcium (test code = 8.7 mg/dL 8.4-10.2 24919-9) AST (test code = 12 U/L 5-34 1920-8) ALT (test code = 10 U/L 6-55 1742-6) EGFR (test code = 48 mL/min/1.73 [place] [address]-4) NOT ACCURATE CREATININE CLEARANCE IN PREDICTING GLOMERULAR FILTRATION RATE . ESTIMATED GFR I S NOT APPLICABLE FOR DIALYSIS PATIENTS. BLADE (test code = BLADE) Chair Car Attendant ID - ADMIN Lab Interpretation Abnormal (test code = 60542-5) [facility] HospitalCOMPREHENSIVE METABOLIC [id number] 20:56:00 Test Item Value Reference Range Interpretation Comments TOTAL PROTEIN 6.0 gm/dL 6.0-8.3 (BEAKER) (test code = 770) ALBUMIN (BEAKER) 3.3 g/dL 3.5-5.0 L (test code = 1145) ALKALINE PHOSPHATASE 59 U/L 40-150 (BEAKER) (test code = 346) BILIRUBIN TOTAL 0.7 mg/dL 0.2-1.2 (BEAKER) (test code = 377) SODIUM (BEAKER) (test 146 meq/L 136-145 H code = 381) POTASSIUM (BEAKER) 3.5 meq/L 3.5-5.1 (test code = 379) CHLORIDE (BEAKER) 108 meq/L 98-107 H (test code = 382) CO2 (BEAKER) (test 28 meq/L 22-29 code = 355) BLOOD UREA NITROGEN 35 mg/dL 7-21 H (BEAKER) (test code = 354) CREATININE (BEAKER) 1.41 mg/dL 0.57-1.25 H (test code = 358) GLUCOSE RANDOM 179 mg/dL 70-105 H (BEAKER) (test code = 652) CALCIUM (BEAKER) 8.7 mg/dL 8.4-10.2 (test code = 697) AST (SGOT) (BEAKER) 12 U/L 5-34 (test code = 353) ALT (SGPT) (BEAKER) 10 U/L 6-55 (test code = 347) EGFR (BEAKER) (test 48 mL/min/1.73 ESTIMA ANN-MARIE GFR IS code = 1092) sq m NOT ACCURATE CREATININE CLEARANCE IN PREDICTING GLOMERULAR FILTRATION RATE . ESTIMATED GFR I S NOT APPLICABLE FOR DIALYSIS PATIEN TS. Chair Car Attendant ID - ADMINLactic acid, [id number] 20:51:00 Test Item Value Reference Range Interpretation Comments Lactate, Venous (test code 1.31 mmol/L 0.5-2.2 = 2872) BLADE (test code = BLADE) Chair Car Attendant ID - ADMIN Lab Interpretation (test Normal code = 92059-8) [facility] HospitalLACTIC ACID, [id number] 20:51:00 Test Item Value Reference Range Interpretation Comments LACTATE BLOOD VENOUS (2) (BEAKER) 1.31 mmol/L 0.50-2.20 (test code = 2872) Chair Car Attendant ID - ADMINCBC W/PLT COUNT & AUTO [id number] 20:30:00 Test Item Value Reference Range Interpretation Comments WHITE BLOOD CELL COUNT (BEAKER) 19.9 K/ L 3.5-10.5 H (test code = 775) RED BLOOD CELL COUNT (BEAKER) 3.92 M/ L 4.63-6.08 L (test code = 761) HEMOGLOBIN (BEAKER) (test code = 11.9 GM/DL 13.7-17.5 L 410) HEMATOCRIT (BEAKER) (test code = 36.7 % 40.1-51.0 L 411) MEAN CORPUSCULAR VOLUME (BEAKER) 93.6 fL 79.0-92.2 H (test code = 753) MEAN CORPUSCULAR HEMOGLOBIN 30.4 pg 25.7-32.2 (BEAKER) (test code = 751) MEAN CORPUSCULAR HEMOGLOBIN CONC 32.4 GM/DL 32.3-36.5 (BEAKER) (test code = 752) RED CELL DISTRIBUTION WIDTH 12.4 % 11.6-14.4 (BEAKER) (test code = 412) PLATELET COUNT (BEAKER) (test 204 K/CU MM 150-450 code = 756) MEAN PLATELET VOLUME (BEAKER) 9.5 fL 9.4-12.4 (test code = 754) NUCLEATED RED BLOOD CELLS 0 /100 WBC 0-0 (BEAKER) (test code = 413) NEUTROPHILS RELATIVE PERCENT 87 % (BEAKER) (test code = 429) LYMPHOCYTES RELATIVE PERCENT 7 % (BEAKER) (test code = 430) MONOCYTES RELATIVE PERCENT 5 % (BEAKER) (test code = 431) EOSINOPHILS RELATIVE PERCENT 0 % (BEAKER) (test code = 432) BASOPHILS RELATIVE PERCENT 0 % (BEAKER) (test code = 437) NEUTROPHILS ABSOLUTE COUNT 17.43 K/ L 1.78-5.38 H (BEAKER) (test code = 670) LYMPHOCYTES ABSOLUTE COUNT 1.38 K/ L 1.32-3.57 (BEAKER) (test code = 414) MONOCYTES ABSOLUTE COUNT (BEAKER) 0.91 K/ L 0.30-0.82 H (test code = 415) EOSINOPHILS ABSOLUTE COUNT 0.01 K/ L 0.04-0.54 L (BEAKER) (test code = 416) BASOPHILS ABSOLUTE COUNT (BEAKER) 0.08 K/ L 0.01-0.08 (test code = 417) IMMATURE GRANULOCYTES-RELATIVE 1 % 0-1 PERCENT (BEAKER) (test code = 2801) RAD, CHEST, 1 VIEW, NON [id number] 20:01:00Reason for exam:- >hypoxiaShould this be performed at the bedside?->Yes [facility] : 1935 Sex: MFINAL REPORT RAD, CHEST, 1 VIEW, NON DEPT INDICATION: hypoxia COMP ARISON: Prior day's exam FINDINGS: Portable frontal view of the chest. IMPRESSION: Limited examination as the patient's right upper extremity is draped over the right lower and mid chest. Within thisconstraint, results are as follows.Support Lines: Stable. Lungs and pleura: There is pulmonary venous congestion without focal consolidation or pleural effusion. No pneumothorax.Heart and mediastinum: Cardiac silhouette is magnified by technique. Mild aortic arch calcifications.Additional findings: Prior cholecystectomy. 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 Signed: Hanh Johnson Verified Date/Time: 04/18/2020 20:01:59 XR chest 1 view portable / [id number] 20:01:00Interface, External Ris In - 04/18/2020 8:04 PM CSTFINAL REPORT RAD, CHEST, 1 VIEW, NON DEPT INDICATION: hypoxia COMPARISON: Prior day's exam FINDINGS: Portable frontal view of the chest. IMPRESSION: Limited examination as the patient's right upper extremity is draped over the right lower and mid chest. Within this constraint, results are as follows.Support Lines: Stable. Lungs and pleura: There is pulmonary venous congestion without focal consolidation or pleural effusion.No pneumothorax.Heart and mediastinum: Cardiac silhouette is magnified by technique. Mild aortic arch calcifications.Additional findings: Prior cholecystectomy. Severe degenerative changes of the rightglenohumeral joint. Signed: Hanh Johnson Verified Date/Time: 04/18/2020 20:01:59 [id number] 00:00:00Ordered by an unspecified provider. [facility]OV[facility])2019-12-31 09:54:00 Test Item Value Reference Range Interpretation Comments SARS-COV2/RT-PCR (test Negative Not Detected, Negative, code = 4785719) See external report for linked test SARS-COV-[address] [facility] (test code = 3511489) Negative result for this test determines that SARS-CoV-2 RNA was not present in the specimen above the Limit of Detection (LOD). However, Negative results do not preclude SARS-CoV-2 infection and should not be used as the sole basis for treatment or patient management decisions. Negative results mustbe combined with clinical observations, patient history, and epidemiological information. A false negative result may occur if a specimen is improperly collected, transported or handled. A false negative result should be considered if patient's recent exposures or clinical presentation indicate that COVID-19 (SARS-CoV-2) is likely and diagnostic tests for other causes of illness are negative. Re-testing should be considered in cases of suspected false negatives.The limit of detection for this assay is 800 copies/mL.This SARS CoV-2 test is a real-time RT-PCR test intended for the qualitative detection of nucleic acid from SARS-CoV-2 in a nasopharyngeal swab specimen collected from individuals suspected of COVID-19 by their healthcare provider.This test has not been Food and Drug Administration (FDA) cleared or approved. This is a modified version of an approved Emergency Use Authorization (EUA) and is in the process of review by the FDA. Once authorized by the FDA, the issued EUA will be effective until the declaration that circumstances exist justifying the authorization of the emergency use of in vitro diagnostic tests for detection and/or diagnosis of COVID-19 is terminated under Section 564(b)(2) of the Act or the EUA is revoked under Section 564(g) of the Act.Fact Sheet for Healthcare Providers:https://www.[employer]gris/sites/default/files/product/documents/Fact_Shee c_IK_Hlqgnqudh_Kqem_KRLX-SqF-2.pdfFact Sheet for Healthcare Patients:https://www.[employer].com/sites/default/files/product/ documents/Agdj_Gtbwm_Zxcjjslo_Zzpw_FERR-AqI-6.pdfPerforming Laboratory:[facility] [place] [address]
[2020-05-19 14:29] LABS: Absolute Lymphocytes (CBC) 1.2 K/uL (0.7-4.9); Hematocrit 40.3 % (39.6-49.0); MPV 7.9 fL (7.6-11.3); RBC Red Blood Cell Count 4.53 M/uL (4.33-5.43)
[2020-05-19 14:41] LABS: Protime INR 1.02
--- NOTE | 2020-05-19 14:45 | RAD REPORT ---
EXAM DESCRIPTION: RAD - Chest Single View - 05/19/2020 2:34 pm CLINICAL HISTORY: COUGH Chest pain. COMPARISON: Chest Single View dated 04/18/2020; Chest Single View dated 12/30/2019; CHEST PA AND LAT 2 VIEW dated 05/07/2015; CHEST PA AND LAT 2 VIEW dated 07/13/2007 FINDINGS: Portable technique limits examination quality. Emphysematous lung markings are noted without focal infiltrate. The heart is mildly enlarged with a t ortuous thoracic aorta. Nondisplaced fracture noted left lateral seventh rib.
[2020-05-19] MEDS ORDERED: NA CHLORIDE 0.9% 1,000 ML ONE (14:46)
[2020-05-19 14:48] LABS: ALT/SGPT 8 U/L (12-78); AST/SGOT 12 U/L (15-37); Albumin 3.6 g/dL (3.4-5.0); Alkaline Phosphatase 84 U/L (45-117); BUN Blood Urea Nitrogen 23 mg/dL (7-18); Bicarbonate 31 mmol/L (21-32); Bilirubin Direct 0.1 mg/dL (0-0.2); Bilirubin Total 0.3 mg/dL (0.2-1.0); Glucose Level 169 mg/dL (74-106); Lipase 101 U/L (73-393); Potassium 4.1 mmol/L (3.5-5.1); Protein, Total 7.2 g/dL (6.4-8.2); Sodium Level 144 mmol/L (136-145); Troponin (Emerg Dept Use Only) < 0.02 ng/mL (0.0-0.045)
[2020-05-19] MEDS ORDERED: ACETAMINOPHEN 325 MG TABLET ONE (14:52)
--- NOTE | 2020-05-19 16:18 | ER ---
Nurse's Notes [facility] Name: Darren Avendano Age: 85 yrs Sex: Male : 1935 Arrival Date: 05/19/2020 Time: 12:33 Bed 4 Private MD: Diagnosis: Fatigue Presentation: 05/19 12:22 Chief complaint: EMS states: [facility] stated patient was AMS this morning. When EMS vg1 arrives patient was AOx3. [facility] also stated that patient fell this morning transferring from bedside chair to bed, slipped down on bed hitting back against the bed, denies LOC. 12:22 Method Of Arrival: EMS: [facility] vg1 12:22 Chief complaint:. Coronavirus screen: Client denies travel out of the [place] in the last vg1 14 days. Ebola Screen: Patient negative for fever greater than or equal to 101.5 degrees Fahrenheit, and additional compatible Ebola Virus Disease symptoms. Initial Sepsis Screen: Does the patient meet any 2 criteria? No. Patient's initial sepsis screen is negative. Does the patient have a suspected source of infection? No. Patient's initial sepsis screen is negative. Risk Assessment: Do you want to hurt yourself or someone else? Patient reports no desire to harm self or others. Onset of symptoms was May 19, 2020. 12:22 Acuity: FREDDIE 3 vg1 12:48 Note Patient was recently Dx with pneumonia and a UTI and has completed Rocephin and is vg1 still on bacterium. Historical: - Allergies: 12:48 No Known Allergies; vg1 - Home Meds: 12:48 Lydia 180 mg Oral tab [Active]; amlodipine 2.5 mg tab [Active]; ascorbic acid vg1 (vitamin C) 500 mg tab [Active]; aspirin 325 mg Oral tab [Active]; baclofen 10 mg Oral tab [Active]; carbidopa-levodopa 25-250 mg Oral tab [Active]; citalopram 10 mg tab [Active]; furosemide 20 mg Oral tab [Active]; gabapentin 100 mg oral cap [Active]; galantamine 24 mg oral C24P [Active]; hydralazine 25 mg Oral tab [Active]; lisinopril 30 mg Oral tab [Active]; melatonin 3 mg Oral tab [Active]; metformin 1,000 mg Oral tab [Active]; Myrbetriq 25 mg oral Tb24 [Active]; Remeron 30 mg Oral tab [Active]; - PMHx: 12:48 CHF; Diabetes - NIDDM; Depression; Hypertension; PVD; vg1 - Immunization history:: Adult Immunizations. - Social history:: Smoking status: Patient denies any tobacco usage or history of. Screenin:20 Abuse screen: Denies threats or abuse. Denies injuries from another. Nutritional sv screening: No deficits noted. Tuberculosis screening: No symptoms or risk factors identified. Fall Risk None identified. Assessment: 12:22 General: Appears in no apparent distress. Behavior is calm, cooperative. Pain: Denies vg1 pain. 12:22 Neuro: Level of Consciousness is awake, alert, obeys commands, Oriented to person, vg1 place, Unable to give or current month, but is able to state the current president.. Cardiovascular: Patient's skin is warm and dry. Respiratory: Airway is patent Respiratory effort is even, unlabored, Respiratory pattern is regular, symmetrical. GI: No signs and/or symptoms were reported involving the gastrointestinal system. : No signs and/or symptoms were reported regarding the genitourinary system. EENT: No signs and/or symptoms were reported regarding the EENT system. Derm: Wound noted inner left gluteal fold. Musculoskeletal: Range of motion: intact in all extremities. 13:30 Reassessment: Patient appears in no apparent distress at this time. No changes from vg1 previously documented assessment. Patient and/or family updated on plan of care and expected duration. Pain level reassessed. 14:37 Reassessment: V/O received and read back for Tylenol 650mg PO. vg1 16:48 Reassessment: Spoke with RC at [facility], is requesting physician notes and sv results. To be faxed to [phone]. 17:40 Reassessment: Patient appears in no apparent distress at this time. No changes from vg1 previously documented assessment. Patient and/or family updated on plan of care and expected duration. Pain level reassessed. Patient awaiting EMS from [facility]. 18:35 Reassessment: Patient appears in no apparent distress at this time. No changes from vg1 previously documented assessment. Patient and/or family updated on plan of care and expected duration. Pain level reassessed. Patient awaiting EMS from [facility]. 18:40 Reassessment: Spoke with Marianne MOSQUEDA at [facility] and she stated that she would call [facility] to see if the previous nurse called for transportation or not. 19:00 Reassessment: Patient appears in no apparent distress at this time. Patient and/or jb4 family updated on plan of care and expected duration. Pain level reassessed. Patient is alert, oriented x 3, equal unlabored respirations, skin warm/dry/pink. 19:35 Reassessment: Spoke with Marianne, she initiated [facility] to come get the patient. iw The previous nurse had not contacted the Ambulance service to come get the patient. The ambulance is now on their way and it should not be more than 1-2 hours. 20:30 Reassessment: Patient appears in no apparent distress at this time. Patient and/or jb4 family updated on plan of care and expected duration. Pain level reassessed. Patient is alert, oriented x 3, equal unlabored respirations, skin warm/dry/pink. 21:13 Reassessment: Patient appears in no apparent distress at this time. Patient and/or jb4 family updated on plan of care and expected duration. Pain level reassessed. Patient is alert, oriented x 3, equal unlabored respirations, skin warm/dry/pink. Report given to [facility]. Vital Signs: 12:22 BP 115 / 68; Pulse 68; Resp 12; Temp 97.9; Pulse Ox 96% on R/A; Weight 72.21 kg; Height vg1 5 ft. 4 in. (162.56 cm); 13:30 BP 96 / 59; Pulse 71; Resp 13; Pulse Ox 96% ; sv 14:30 BP 120 / 72; Pulse 78; Resp 15; Pulse Ox 98% ; sv 15:00 BP 139 / 78; Pulse 86; Resp 24; Pulse Ox 98% on R/A; vg1 15:30 BP 140 / 92; Pulse 87; Resp 24; Pulse Ox 96% on R/A; sv 16:19 BP 132 / 86; Pulse 88; Resp 20; Pulse Ox 98% on R/A; sv 17:00 BP 131 / 85; Pulse 94; Resp 14; Pulse Ox 100% ; sv 17:30 BP 136 / 85; Pulse 91; Resp 22; Pulse Ox 100% on R/A; vg1 18:00 BP 135 / 82; Pulse 87; Resp 22; Pulse Ox 24% on R/A; vg1 18:30 BP 107 / 82; Pulse 85; Resp 24; Pulse Ox 99% on R/A; vg1 18:35 BP 135 / 76; Pulse 88; Resp 20; Pulse Ox 100% on R/A; vg1 21:13 BP 133 / 75; Pulse 91; Resp 16; Pulse Ox 97% on R/A; jb4 12:22 Body Mass Index 27.33 (72.21 kg, 162.56 cm) vg1 ED Course: 12:22 Arm band placed on. sv 12:25 livestock ranch hand on. Pulse ox on. NIBP on. sv 12:33 Patient arrived in ED. vg1 12:38 Murtaza Rizvi MD is Attending Physician. ps1 12:39 Triage completed. vg1 13:15 Jessica Wilburn RN is Primary Nurse. vg1 14:20 Inserted saline lock: 20 gauge in right antecubital area, using aseptic technique. sv Blood collected. Flushed right antecubital with 5 ml normal saline. 14:20 Patient has correct armband on for positive identification. Bed in low position. Call sv light in reach. Side rails up X2. 14:35 Chest Single View XRAY In Process Unspecified. EDMS 14:55 EKG done, by ED staff, reviewed by Murtaza Rizvi MD. dh3 16:10 Straight cath inserted, using sterile technique, 16 Fr. Specimen obtained. sv 16:16 No provider procedures requiring assistance completed. sv 17:25 transfer transportation to receiving facility. sv 18:50 Cleaned of incontinence. sv 19:00 IV discontinued, intact, bleeding controlled, No redness/swelling at site. Pressure jb4 dressing applied. 19:59 Primary Nurse role handed off by Jessica Wilburn, RN mw2 20:06 Attending Physician role handed off by Murtaza Rizvi MD mw2 20:31 Luis A Maciel RN is Primary Nurse. jb4 Administered Medications: 14:32 Drug: NS 0.9% 1000 ml Route: IV; Rate: 1000 ml; Site: right antecubital; vg1 15:52 Follow up: IV Status: Completed infusion; IV Intake: 1000ml vg1 14:39 Drug: Tylenol 650 mg Route: PO; vg1 15:30 Follow up: Response: Pain is decreased vg1 15:52 CANCELLED (Physician Discretion): NS 0.9% (30 ml/kg) 30 ml/kg IV at bolus once; Sepsis vg1 Protocol Intake: 15:52 IV: 1000ml; Total: 1000ml. vg1 Outcome: 16:17 Discharge ordered by . ps1 17:06 Discharged to halfway. Report called to Felicia MOSQUEDAmolder pipe covering form completed. sv 17:06 Condition: stable 17:06 Discharge instructions given to halfway, Instructed on discharge instructions, follow up and referral plans. Demonstrated understanding of instructions, follow-up care. 21:15 Patient left the ED. jb4 Signatures: Dispatcher [employer] EDGenny Engel RN RN Elvia Rodriguez RN Luis A Gresham RN RN jb4 Cinthia Hidalgo 3 Murtaza Rizvi MD MD ps1 [place], MyKena mw2 Jessica Wilburn RN RN vg1 Corrections: (The following items were deleted from the chart) 14:28 12:22 BP 115 / 68; Pulse 68bpm; Resp 12bpm; Pulse Ox 96% RA; Temp 97.9F; vg1 vg1 15:52 14:32 NS 0.9% (30 ml/kg) 30 ml/kg IV at bolus in right antecubital vg1 vg1 21:14 20:05 Patient left the ED. mw2 jb4
--- NOTE | 2020-05-19 16:18 | EDPHYS ---
Physician Documentation [facility] Name: Darren Avendano Age: 85 yrs Sex: Male : 1935 Arrival Date: 05/19/2020 Time: 12:33 Bed 4 Private MD: ED Physician HPI: 05/19 14:03 This 85 yrs old Male presents to ER via EMS with complaints of confusion. ps1 14:03 Patient from [facility]. Reportedly had recent pneumonia. Confused earlier. EMS ps1 called for evaluation. Patient is alert and oriented on arrival. States he feels well. Denies fever or chest pain. . Historical: - Allergies: 12:48 No Known Allergies; vg1 - Home Meds: 12:48 Lydia 180 mg Oral tab [Active]; amlodipine 2.5 mg tab [Active]; ascorbic acid vg1 (vitamin C) 500 mg tab [Active]; aspirin 325 mg Oral tab [Active]; baclofen 10 mg Oral tab [Active]; carbidopa-levodopa 25-250 mg Oral tab [Active]; citalopram 10 mg tab [Active]; furosemide 20 mg Oral tab [Active]; gabapentin 100 mg oral cap [Active]; galantamine 24 mg oral C24P [Active]; hydralazine 25 mg Oral tab [Active]; lisinopril 30 mg Oral tab [Active]; melatonin 3 mg Oral tab [Active]; metformin 1,000 mg Oral tab [Active]; Myrbetriq 25 mg oral Tb24 [Active]; Remeron 30 mg Oral tab [Active]; - PMHx: 12:48 CHF; Diabetes - NIDDM; Depression; Hypertension; PVD; vg1 - Immunization history:: Adult Immunizations. - Social history:: Smoking status: Patient denies any tobacco usage or history of. ROS: 14:03 Constitutional: Negative for fever, chills, and weight loss. ps1 14:03 Cardiovascular: Negative for chest pain, palpitations, and edema, Abdomen/GI: Negative for abdominal pain, nausea, vomiting, diarrhea, and constipation, MS/Extremity: Negative for injury and deformity, Skin: Negative for injury, rash, and discoloration. 14:03 Cardiovascular: Positive for 14:03 Respiratory: Positive for cough. 14:03 Neuro: Positive for confusion. Exam: 14:07 Constitutional: This is a well developed, well nourished patient who is awake, alert, ps1 and in no acute distress. Head/Face: Normocephalic, atraumatic. Eyes: Pupils equal round and reactive to light, extra-ocular motions intact. Lids and lashes normal. Conjunctiva and sclera are non-icteric and not injected. Cardiovascular: Regular rate and rhythm. No gallops, murmurs, or rubs. Normal PMI, no JVD. No pulse deficits. Respiratory: Lungs have equal breath sounds bilaterally, clear to auscultation and percussion. No rales, rhonchi or wheezes noted. No increased work of breathing, no retractions or nasal flaring. Abdomen/GI: Soft, non-tender, with normal bowel sounds. No distension or tympany. No guarding or rebound. No evidence of tenderness throughout. Skin: Warm, dry with normal turgor. Normal color with no rashes, no lesions, and no evidence of cellulitis. MS/ Extremity: Pulses equal, no cyanosis. Neurovascular intact. Full, normal range of motion. Neuro: Awake and alert, GCS 15, oriented to person, place, time, and situation. Cranial nerves II-XII grossly intact. Sensory grossly intact. Psych: Awake, alert, with orientation to person, place and time. Behavior, mood, and affect are within normal limits. Vital Signs: 12:22 BP 115 / 68; Pulse 68; Resp 12; Temp 97.9; Pulse Ox 96% on R/A; Weight 72.21 kg; Height vg1 5 ft. 4 in. (162.56 cm); 13:30 BP 96 / 59; Pulse 71; Resp 13; Pulse Ox 96% ; sv 14:30 BP 120 / 72; Pulse 78; Resp 15; Pulse Ox 98% ; sv 15:00 BP 139 / 78; Pulse 86; Resp 24; Pulse Ox 98% on R/A; vg1 15:30 BP 140 / 92; Pulse 87; Resp 24; Pulse Ox 96% on R/A; sv 16:19 BP 132 / 86; Pulse 88; Resp 20; Pulse Ox 98% on R/A; sv 17:00 BP 131 / 85; Pulse 94; Resp 14; Pulse Ox 100% ; sv 17:30 BP 136 / 85; Pulse 91; Resp 22; Pulse Ox 100% on R/A; vg1 18:00 BP 135 / 82; Pulse 87; Resp 22; Pulse Ox 24% on R/A; vg1 18:30 BP 107 / 82; Pulse 85; Resp 24; Pulse Ox 99% on R/A; vg1 18:35 BP 135 / 76; Pulse 88; Resp 20; Pulse Ox 100% on R/A; vg1 21:13 BP 133 / 75; Pulse 91; Resp 16; Pulse Ox 97% on R/A; jb4 12:22 Body Mass Index 27.33 (72.21 kg, 162.56 cm) vg1 MDM: 12:45 Patient medically screened. ps1 05/19 14:01 Order name: Basic Metabolic Panel; Complete Time: 14:54 ps1 05/19 14:01 Order name: CBC with Diff; Complete Time: 14:45 ps1 05/19 14:01 Order name: Lactate; Complete Time: 14:54 ps1 05/19 14:01 Order name: LFT's; Complete Time: 14:54 ps1 05/19 14:01 Order name: Lipase; Complete Time: 14:54 ps1 05/19 14:01 Order name: Procalcitonin; Complete Time: 16:12 ps1 05/19 14:01 Order name: Protime (+inr); Complete Time: 15:04 ps1 05/19 14:01 Order name: Ptt, Activated; Complete Time: 15:04 ps1 05/19 14:01 Order name: Troponin (emerg Dept Use Only); Complete Time: 14:54 ps1 05/19 14:01 Order name: Chest Single View XRAY; Complete Time: 14:54 ps1 05/19 16:20 Order name: Urine Dipstick--Ancillary (enter results); Complete Time: 16:53 bd 05/19 14:01 Order name: Cardiac monitoring; Complete Time: 14:50 ps1 05/19 14:01 Order name: EKG - Nurse/Tech; Complete Time: 15:04 ps1 05/19 14:01 Order name: IV Saline Lock - Large Bore; Complete Time: 14:23 ps1 05/19 14:01 Order name: Labs collected and sent; Complete Time: 14:23 ps1 05/19 14:01 Order name: O2 Per Protocol; Complete Time: 14:23 ps1 05/19 14:01 Order name: O2 Sat Monitoring; Complete Time: 14:23 ps1 05/19 14:01 Order name: Urine Dipstick-Ancillary (obtain specimen); Complete Time: 16:38 ps1 05/19 15:12 Order name: Straight Cath - Urine; Complete Time: 16:38 ps1 Administered Medications: 14:32 Drug: NS 0.9% 1000 ml Route: IV; Rate: 1000 ml; Site: right antecubital; vg1 15:52 Follow up: IV Status: Completed infusion; IV Intake: 1000ml vg1 14:39 Drug: Tylenol 650 mg Route: PO; vg1 15:30 Follow up: Response: Pain is decreased vg1 15:52 CANCELLED (Physician Discretion): NS 0.9% (30 ml/kg) 30 ml/kg IV at bolus once; Sepsis vg1 Protocol Disposition: 05/19/20 16:17 Discharged to Home. Impression: Fatigue. - Condition is Stable. - Discharge Instructions: Fatigue. - SBAR form, Medication Reconciliation Form, Thank You Letter, Antibiotic Education, Prescription Opioid Use form. - Follow up: Private Physician; When: 48 Hours; Reason: Recheck today's complaints, Re-evaluation by your physician. Follow up: Emergency Department; When: As needed; Reason: Fever > 102 F, Trouble breathing, Worsening of condition. - Problem is new. - Symptoms have improved. Signatures: Dispatcher [employer] Genny Crowell RN RN sv Bryson, James, RN RN jb4 Murtaza Rizvi MD MD ps1 Natty Iyer mw2 Jessica Wilburn RN RN vg1 Corrections: (The following items were deleted from the chart) 14:50 14:01 Accucheck ordered. ps1 sv 15:52 14:01 NS 0.9% (30 ml/kg) 30 ml/kg IV at bolus once; Sepsis Protocol ordered. ps1 vg1 15:52 15:52 NS 0.9% (30 ml/kg) 30 ml/kg IV at bolus once; Sepsis Protocol ordered. vg1 vg1 17:59 14:03 UA MICROSCOPIC+U.LAB.BRZ ordered. [facility] 20:05 16:17 05/19/2020 16:17 Discharged to Home. Impression: Fatigue. Condition is Stable. mw2 Forms are Medication Reconciliation Form, Thank You Letter, Antibiotic Education, Prescription Opioid Use. Follow up: Private Physician; When: 48 Hours; Reason: Recheck today's complaints, Re-evaluation by your physician. Follow up: Emergency Department; When: As needed; Reason: Fever > 102 F, Trouble breathing, Worsening of condition. Problem is new. Symptoms have improved. ps1 21:15 20:05 05/19/2020 16:17 Discharged to Home. Impression: Fatigue. Condition is Stable. jb4 Discharge Instructions: Fatigue. Forms are Medication Reconciliation Form, Thank You Letter, Antibiotic Education, Prescription Opioid Use. Follow up: Private Physician; When: 48 Hours; Reason: Recheck today's complaints, Re-evaluation by your physician. Follow up: Emergency Department; When: As needed; Reason: Fever > 102 F, Trouble breathing, Worsening of condition. Problem is new. Symptoms have improved. mw2
[2020-05-19 16:36] LABS: Urine Blood NEGATIVE (NEG); Urine Glucose NEGATIVE (NEG); Urine Protein NEGATIVE (NEG); Urine Specific Gravity 1.015 (1.005-1.030)
--- NOTE | 2020-05-21 19:17 | EKG ---
Test Date: 2020-05-19 Test Time: 14:51:19 Blower Operator: DAVID MEASUREMENT RESULTS: Intervals: Rate: 73 OR: 276 QRSD: 82 QT: 380 QTc: 418 [place]: P: 38 OR: 276 QRS: -47 T: 8 INTERPRETIVE STATEMENTS: Sinus rhythm with 1st degree AV block Left axis deviation Voltage criteria for left ventricular hypertrophy Possible Lateral infarct, age undetermined Inferior infarct, age undetermined Abnormal ECG Compared to ECG 04/18/2020 14:03:24 First degree AV block now present Supraventricular tachycardia no longer present Myocardial infarct finding still present Electronically Signed On 05-21-20 19:13:04 DAIRY MACHINE OPERATOR FARMWORK[employer] by John Walker
[2020-05-22 13:04] VITALS: BP 133/75; O2SAT 97
== END 2020-05-19 21:15 | disposition home or self-care (01) ==
LOC: ER 12:29
DX: R53.83 Other fatigue (principal); I10 Essential (primary) hypertension; E11.9 Type 2 diabetes mellitus without complications; I50.9 Heart failure, unspecified; F32.9 Major depressive disorder, single episode, unspecified; I73.9 Peripheral vascular disease, unspecified
CPT/HCPCS: 93005; 85025; 80048; 36415; 85610; 80076; 83605; 85730; 81003; 84484; 83690; 84145; 71045; 51702; 96360; 99285; J7030